=== PATIENT | male | born 1980 | race Caucasian/White ===

== ENCOUNTER 2016-10-06 09:24 | Emergency (ER) | payer SELFPAY ==
[2016-10-06 09:45] VITALS: TEMP 97.7
--- NOTE | 2016-10-06 10:20 | EDPHY ---
H & P Stated Complaint: 2 weeks of groin rash, thought it was herpies HPI/ROS: CHIEF COMPLAINT: Groin rash, penis pain, testicular pain HISTORY OF PRESENT ILLNESS: Patient complains of 2 week history of rash to the left groin and now several days of pain and swelling to the penis and testicles. Gradual onset. Constant duration. The rash at 1st he thought was herpetic, but then decided that it was actually candidal. He is convinced that this is a candidal infection of the groin that has spread to the penis. The penis he says is "the size of a grapefruit and really painful." No difficulty urinating. No fever or chills. No sexual activity during the course of this. No abdominal pain. No constipation diarrhea. Has a prior diagnosis of HSV. He does not take any proper prescriptions, he prefers to manage his symptoms with naturopathic medicine. No other associated complaints or modifying factors. REVIEW OF SYSTEMS: Ten systems reviewed and are negative unless otherwise noted in the HPI PAST MEDICAL HISTORY: HSV, chronic pain SOCIAL HISTORY: Works for [employer] FAMILY HISTORY: Noncontributory EXAMINATION General Appearance: Alert, no distress Head: normocephalic, atraumatic Eyes: Pupils equal and round, no conjunctival pallor or injection ENT, Mouth: Mucous membranes moist Neck: Normal inspection, supple, non-tender Respiratory: Lungs are clear to auscultation. No wheezing, rhonchi or crackles Cardiovascular: Regular rate and rhythm. No murmur Gastrointestinal: Abdomen is soft and nontender. No CVA tenderness. No hernia. No distention or rigidity. Nonacute abdomen. : Circumcised penis with significant swelling of the glans and the shaft of the penis. There is a candidal rash present. No hernia on testicular examination. Testicles are tender to the touch but nonedematous. Skin: Warm and dry, candidal rash consistent with tinea cruris Extremities: Nontender, no pedal edema Psychiatric: Mood and affect normal DIFFERENTIAL DIAGNOSES: Including but not limited to tinea cruris, balanitis, torsion, epididymitis, STI , HSV MDM: 10:20 a.m. Candidal rash to the groin as well as the penis and scrotum along with balanitis. He does have testicular pain, thus I have ordered an ultrasound of the scrotum and testicles. I do not appreciate torsion and I suspect this is more related to the Lali. Will start with treatment here of topical antifungal. He has declined oral antifungals as he feels that he cannot tolerate them due to previous incidence of taking them. Patient felt that this was a herpetic rash. The appearance is more consistent with Lali than HSV. 11:47 a.m. Case discussed with radiologist Dr. Shah. Ultrasound of the testicles reveals only cutaneous changes. No epididymitis. No torsion. No varicocele or hematocele. This fits clinically with this picture of balanitis and tinea cruris. Continue treatment with terbinafine. Recommend follow up with urologist for definitive care. Return here for any worsening pain, difficulty urinating, gross hematuria. He is comfortable with this plan and discharged home stable condition. SUPERVISION: This patient was independently evaluated without direct examination by the attending physician. Case was discussed with attending physician. Source: Patient Exam Limitations: No limitations - Personal History Current Tetanus/Diphtheria Vaccine: Yes Current Tetanus Diphtheria and Acellular Pertussis (TDAP): Yes - Medical/Surgical History Hx Asthma: No Hx Chronic Respiratory Disease: No Hx Diabetes: No Hx Cardiac Disease: No Hx Renal Disease: No Hx Cirrhosis: No Hx Alcoholism: No Hx HIV/AIDS: No Hx Splenectomy or Spleen Trauma: No Other PMH: BROKE BACK/NECK, toenail infection - Social History Smoking Status: Never smoked Constitutional: Initial Vital Signs Temperature (C) 97.7 F 10/06/16 09:43 Heart Rate 86 10/06/16 09:43 Respiratory Rate 16 10/06/16 09:43 Blood Pressure 119/73 10/06/16 09:43 O2 Sat (%) 98 10/06/16 09:43 O2 Delivery Mode Room Air Allergies/Adverse Reactions: gluten Allergy (Verified 12/29/15 03:27) Milk Containing Products [dairy] Allergy (Verified 12/29/15 03:27) Home Medications: Medication Instructions Recorded Terbinafine [Lamisil At] 12 gm TP BID #1 tube 10/06/16 oxyCODONE HCL/ACETAMINOPHEN 1 each PO Q4-6PRN PRN #14 tablet 10/06/16 [Percocet 5-325 mg Tablet] Medical Decision Making - Diagnostics Imaging Results: Imaging Impressions Testicular Ultrasound 10/06/16 10:18 Impression: Scrotal soft tissue swelling, otherwise, negative testicular ultrasound. Results called and discussed with Piter Valentin PAC on 10/06/2016 at 11:51: - Data Points Laboratory Results: 10/06/16 10/06/16 10:05 10:05 Urine Color PALE YELLOW Urine Appearance CLEAR Urine pH 7.0 (5.0-7.5) Ur Specific [place] 1.005 (1.002-1.030) Urine Protein NEGATIVE (NEGATIVE) Urine Ketones NEGATIVE (NEGATIVE) Urine Blood NEGATIVE (NEGATIVE) Urine Nitrate NEGATIVE (NEGATIVE) Urine Bilirubin NEGATIVE (NEGATIVE) Urine Urobilinogen NEGATIVE EU EU (0.2-1.0) Ur Leukocyte Esterase NEGATIVE (NEGATIVE) Urine RBC 25-50 /hpf H /hpf (0-3) Urine WBC 1-3 /hpf /hpf (0-3) Ur Epithelial Cells NONE SEEN /lpf /lpf (NONE-1+) Urine Glucose NEGATIVE (NEGATIVE) C.trachomatis RNA (TMA) Pending N.gonorrhoeae RNA (TMA) Pending Medications Given: Discontinued Medications Oxycodone HCl (Oxycodone Ir) 10 mg PO EDNOW ONE Stop: 10/06/16 10:56 Last Admin: 10/06/16 11:00 Dose: 10 mg Oxycodone/Acetaminophen (Percocet 5/325) 1 tab PO EDNOW ONE Stop: 10/06/16 10:49 Last Admin: 10/06/16 10:55 Dose: Not Given Departure - Departure Disposition: Home, Routine, Self-Care Clinical Impression: Balanitis, Tinea cruris Condition: Good Instructions: Tinea Corporis (ED), Jock Itch (ED), Balanitis (ED) Additional Instructions: Medications as discussed. Contact Urology today for follow-up as soon as possible. Return here for worsening symptoms or increasing swelling Referrals: NONE *PRIMARY CARE P,. [Primary Care Provider] - As per Instructions Aleks Mckinnon MD [Medical Doctor] - As per Instructions Prescriptions: oxyCODONE HCL/ACETAMINOPHEN [Percocet 5-325 mg Tablet] 1 each PO Q4-6PRN PRN # 14 tablet PRN Reason: Pain, Breakthrough Terbinafine [Lamisil At] 12 gm TP BID #1 tube
[2016-10-06 10:29] LABS: COLOR PALE YELLOW; LEUKOCYTE ESTERASE,URINE NEGATIVE (NEGATIVE); NITRITE,URINE NEGATIVE (NEGATIVE)
[2016-10-06] MEDS ORDERED: TERBINAFINE 30 GM CRTUBE TP SCH (10:30)
[2016-10-06 10:35] LABS: RBC,URINE 25-50 /hpf (0-3)
[2016-10-06] MEDS ORDERED: OXYCODONE/APAP 5/325 TAB PO ONE (10:48)
[2016-10-06] MEDS ORDERED: oxyCODONE IR 5 MG TAB PO ONE (10:55)
[2016-10-06 12:35] VITALS: BP 114/69; PULSE 68; RESP 18; O2SAT 95
[2016-10-07 12:40] LABS: CHLAMYDIA AMPLIFICATION GENPRB NEGATIVE (NEGATIVE)
== END 2016-10-06 12:35 | disposition home or self-care (01) ==
DX: N48.1 Balanitis (principal); B35.6 Tinea cruris

== ENCOUNTER 2016-10-07 12:11 | Emergency (ER) | payer SELFPAY ==
--- NOTE | 2016-10-07 13:00 | EDPHY ---
H & P Stated Complaint: groin pain penis pain Time Seen by Provider: 10/07/16 13:10 HPI/ROS: CHIEF COMPLAINT: Testicular pain, swelling, rash HISTORY OF PRESENT ILLNESS: This patient is a 35-year-old male who presents to the Emergency Department complaining of worsening testicular and scrotum swelling and candidal rash beginning 1.5 weeks ago and worsening over time. He was seen in this facility yesterday for the same complaint and discharged home with Terbinafine to topically treat tinea cruris and balanitis. He had a normal testicular ultrasound at that time apart from cutaneous swelling. He returns today because his pain has been unmanageable even with use of Percocet. He describes a stabbing and burning pain throughout his inguinal region, associated with nausea but no vomiting. He denies fever or chills or dysuria. Medical history includes eczema and history of recurrent fungal infections over the course of his life. He has a remote history of herpes. REVIEW OF SYSTEMS: A ten point review of systems was performed and is negative with the exception of the items mentioned in the HPI. Source: Patient - Personal History Current Tetanus/Diphtheria Vaccine: Unsure Current Tetanus Diphtheria and Acellular Pertussis (TDAP): Unsure - Medical/Surgical History PMH: Prior medical records reviewed by myself, including visit yesterday for same complaint. 1. Modesta (self-diagnosed) 2. Eczema 3. Vertebral fractures, unspecified Hx Asthma: No Hx Chronic Respiratory Disease: No Hx Diabetes: No Hx Cardiac Disease: No Hx Renal Disease: No Hx Cirrhosis: No Hx Alcoholism: No Hx HIV/AIDS: No Hx Splenectomy or Spleen Trauma: No Other PMH: BROKE BACK/NECK, toenail infection - Social History Smoking Status: Never smoked Additional Social History: Non-smoker. He is not . He works for [employer]. - Physical Exam Exam: General Appearance: Alert. Vital signs reviewed. Eyes: Pupils equal and round, no conjunctival injection, no discharge. Anicteric. ENT, Mouth: Mucous membranes are moist, no oropharyngeal erythema or edema. Neck: No lymphadenopathy, supple. Respiratory: Lungs are clear to auscultation; no wheezes, rales, or rhonchi. Cardiovascular: Regular rate and rhythm; no murmur, rub, or gallop. Gastrointestinal: Abdomen is soft and nontender, no masses or organomegaly, bowel sounds normal. Genitalia: Circumcised male. Erythematous papular rash bilaterally to inguinal area extending to both thighs, erythematous and edematous scrotum and testicles. Skin: Warm and dry, no rashes on exposed skin, normal color. Back: Nontender to palpation over the thoracolumbar spine. No CVAT. Extremities: No lower extremity edema, no calf tenderness or swelling. Neurological: Alert and oriented. Moving all four extremities easily and equally. Psychiatric: Normal affect. Constitutional: Initial Vital Signs Temperature (C) 36.5 C 10/07/16 12:17 Heart Rate 64 10/07/16 12:17 Respiratory Rate 16 10/07/16 12:17 Blood Pressure 113/66 10/07/16 12:17 O2 Sat (%) 94 10/07/16 12:17 O2 Delivery Mode Room Air Allergies/Adverse Reactions: gluten Allergy (Verified 10/08/16 16:26) Milk Containing Products [dairy] Allergy (Verified 10/08/16 16:26) Home Medications: Medication Instructions Recorded Herbals/Supplements -Info Only 1 ea PO DAILY 10/08/16 Acetaminophen [Tylenol 325mg (*)] 650 mg PO Q4HRS PRN #0 tab 10/10/16 Ibuprofen [Motrin (*)] 400 mg PO Q6HRS PRN #0 tab 10/10/16 Polyethylene Glycol 3350 [Miralax 17 gm PO DAILY PRN #0 pkt 10/10/16 17 gm (*)] diphenhydrAMINE [Benadryl 25 MG 25 - 50 mg PO Q6HRS PRN #0 cap 10/10/16 (*)] oxyCODONE IR [Oxycodone Ir (*)] 5 mg PO Q4H PRN #12 tab 10/10/16 predniSONE 40 mg PO DAILY #20 tablet 10/10/16 Medical Decision Making - Diagnostics Imaging: Discussed imaging studies w/ scallop shucker Radiologist ED Course/Re-evaluation: 35-year-old male with history of genital HSV and self-diagnosis of modesta presents today with complaints of pruritic rash, edema, and erythema to his groin, scrotum, and testicles. He has no known immunocompromising condition. He is non-diabetic. He was evaluated yesterday and treated with topical Terbinafine and given Percocet for pain. He presents today as the rash has spread to include his upper thighs and the pain has been unmanageable. He is afebrile at time of presentation and denies subjective fever. On exam, he has significant edema to his scrotum and both testicles and a papular rash to his groin. Piter Valentin, the PA who evaluated the patient yesterday, evaluated the patient at my request and reports significant increase to the area of the rash as well as the swelling and erythema to the patient's genitalia. Plan for consultation with urology to determine next steps. 1330: Consultation with Dr. Hurtado, urology, who recommends labs and CT imaging for further evaluation. I discussed plan for labs and CT of the abdomen and pelvis with the patient. He is agreeable to this. IV established. 1L IV NS, 4mg IV Zofran, and 1mg IV Dilaudid administered for pain. 1420: On reevaluation, the patient is feeling better after receiving pain medication. He is on his way CT scan. CBC and chemistries obtained and are largely within normal limits. WBC is normal at 6.03. There is nothing to suggest altered renal function. 1526: CT of the abdomen and pelvis results discussed with Dr. Ayala, radiologist. There is nothing to suggest necrotizing fasciitis. There is diffuse scrotal and testicular edema. Pelvic lymphadenopathy is noted, likely reactive. 1540: Consultation with Dr. Hurtado, urology, who recommends treating the patient' s rash with Medrol Dosepak and dermatology follow-up. I discussed this with the patient. He refuses prednisone; he tells me that his kidneys and liver "shut down" when he took prednisone previously. I continue to believe that this would be the best course for treatment of his inflammation; however, he declines. He will continue to take oxycodone as needed for pain. He understands customary return precautions and will be discharged home in good condition. Although he appears uncomfortable, I do not think that he is septic or in need of hospitalization. I do not think that this is a cellulitis. Differential Diagnosis: Differential diagnosis includes but is not limited to cellulitis, necrotizing fasciitis, Modesta, eczema, other dermatologic condition. - Data Points Laboratory Results: Laboratory Results 10/07/16 13:45 10/07/16 13:45 Medications Given: Discontinued Medications Hydromorphone HCl (Dilaudid) 0.5 mg IVP EDNOW ONE Stop: 10/07/16 13:47 Last Admin: 10/07/16 14:00 Dose: 0.5 mg Hydromorphone HCl (Dilaudid) 0.5 mg IVP EDNOW ONE Stop: 10/07/16 14:38 Last Admin: 10/07/16 14:40 Dose: 0.5 mg Hydromorphone HCl (Dilaudid) 1 mg IVP EDNOW ONE Stop: 10/07/16 15:55 Last Admin: 10/07/16 16:00 Dose: 1 mg Ondansetron HCl (Zofran) 4 mg IVP EDNOW ONE Stop: 10/07/16 13:47 Last Admin: 10/07/16 14:00 Dose: 4 mg Departure - Departure Disposition: Home, Routine, Self-Care Clinical Impression: Balanitis, Scrotal edema Condition: Good Instructions: Narcotic Pain Management (ED), Balanitis (ED) Additional Instructions: 1. Stop using any cream to treat your rash. It's possible that the creams you have been using are worsening the inflammation as opposed to improving them. 2. We have given you a prescription for methylprednisolone to treat your rash, inflammation, and swelling. It is your choice if you do not wish to proceed with this treatment, but I recommend it as it will help with your inflammation. 3. You can continue to use oxycodone as prescribed for severe pain. 4. Call to schedule a follow-up appointment with a talent program manager for further evaluation. We do not have any on-call providers, so you will need to find a provider online. 5. Return to the Emergency Department if you experience increased swelling or pain, if your rash spreads to other parts of your body, if you have difficulty urinating, high fever, or for other serious concerns. Referrals: Jerzy Hurtado MD [Medical Doctor] - As per Instructions Report Scribed for: Kelly Rivera Report Scribed by: Maribel Dahl Date of Report: 10/07/16 Time of Report: 13:02 Physician Review and Approval Statement: 10/07/16 13:44 Portions of this note were transcribed by the hospitalist medical director. I, Dr. Kelly Rivera, personally performed the history, physical exam, and medical decision- making; and confirmed the accuracy of the information in the transcribed note.
[2016-10-07] MEDS ORDERED: HYDROmorphONE/DILAUDID 1 MG/ML SYR IVP ONE ×3 (13:46→15:54)
[2016-10-07] MEDS ORDERED: ONDANSETRON 4 MG/2 ML VIAL IVP ONE (13:46)
[2016-10-07 14:10] LABS: % IMMATURE GRANULYOCYTES 0.2 % (0.0-1.1); ABSOLUTE IMMATURE GRANULOCYTES 0.01 10^3/uL (0.00-0.10); ADD DIFF? NO; ADD MORPH? NO; ADD SCAN? NO; ATYPICAL LYMPHOCYTE FLAG 30 (0-99); FRAGMENT RBC FLAG 0 (0-99); HEMATOCRIT 42.1 % (40.0-51.0); HEMOGLOBIN 14.7 g/dL (13.7-17.5); LEFT SHIFT FLG 0 (0-99); LIPEMIA HEMOLYSIS FLAG 90 (0-99); MEAN CELL HEMOGLOBIN 34.3 pg (27.9-34.1); MEAN CELL HEMOGLOBIN CONCENTR. 34.9 g/dL (32.4-36.7); MEAN CELL VOLUME 98.1 fL (81.5-99.8); MEAN PLATELET VOLUME 9.5 fL (8.7-11.7); PLATELET CLUMPS FLAG 0 (0-99); PLATELET COUNT 187 10^3/uL (150-400); RED BLOOD CELL COUNT 4.29 10^6/uL (4.40-6.38); RED CELL DISTRIBUTION WIDTH 12.8 % (11.5-15.2)
[2016-10-07 14:13] LABS: ANION GAP 10 mEq/L (8-16); CALCIUM 9.8 mg/dL (8.5-10.4); CARBON DIOXIDE 25 mEq/l (22-31); CHLORIDE 98 mEq/L (97-110); CREATININE 1.1 mg/dL (0.7-1.3); GLOMERULAR FILTRATION RATE > 60; GLUCOSE 76 mg/dL (70-100); POTASSIUM 4.6 mEq/L (3.5-5.2); SODIUM 133 mEq/L (134-144)
[2016-10-07] MEDS ORDERED: IOPAMIDOL (ISOVUE-300) 100 ML BTL ONE (14:18)
[2016-10-07 15:03] VITALS: TEMP 98.8
[2016-10-07 16:26] VITALS: BP 112/64; PULSE 55; RESP 14; O2SAT 100
== END 2016-10-07 16:00 | disposition home or self-care (01) ==
DX: N50.89 Other specified disorders of the male genital organs (principal); N48.1 Balanitis
CPT/HCPCS: 96374; J1170; J2405; Q9967

== ENCOUNTER 2016-10-08 16:15 | Inpatient (IN) | payer SELFPAY ==
--- NOTE | 2016-10-08 17:00 | EDPHY ---
H & P Stated Complaint: continued prob with testicular rash/swelling (won't take his rx prednisone) Time Seen by Provider: 10/08/16 17:00 - Personal History Current Tetanus/Diphtheria Vaccine: Yes - Medical/Surgical History Hx Asthma: No Hx Chronic Respiratory Disease: No Hx Diabetes: No Hx Cardiac Disease: No Hx Renal Disease: No Hx Cirrhosis: No Hx Alcoholism: No Hx HIV/AIDS: No Hx Splenectomy or Spleen Trauma: No Other PMH: BROKE BACK/NECK, toenail infection - Social History Smoking Status: Never smoked Constitutional: Initial Vital Signs Temperature (C) 36.8 C 10/08/16 16:27 Heart Rate 60 10/08/16 16:27 Respiratory Rate 16 10/08/16 16:27 Blood Pressure 121/75 H 10/08/16 16:27 O2 Sat (%) 97 10/08/16 16:27 O2 Delivery Mode Room Air Allergies/Adverse Reactions: gluten Allergy (Verified 10/08/16 16:26) Milk Containing Products [dairy] Allergy (Verified 10/08/16 16:26) Home Medications: Medication Instructions Recorded Herbals/Supplements -Info Only 1 ea PO DAILY 10/08/16 Medical Decision Making ED Course/Re-evaluation: CHIEF COMPLAINT: Worsening rash and edema to genitals HISTORY OF PRESENT ILLNESS: The patient is a 35 y/o male returning for the 3rd time in 3 days for worsening rash, edema, and pain to his penis, testicles, abdomen and now spreading to his arms. He states he has a remote history of a significant skin infection or eczema on his extremities that was treated with "experimental fungal cream" and steroids. He has since had self-diagnosed recurrent modesta infections that he self-treats. About 2 weeks ago he noticed suprapubic pain and redness. This has since spread to his scrotum, penis, and abdomen with associated edema and in the last 5 hours symptoms began spreading to his extremities and back. He says, "my testicles are the source of the most immense pain ever." He has been able to urinate, but says it is associated with flank pain. He also developed weeping around his genitals today. He thinks his symptoms are due to a parasite or some type of modesta infection. He had an abdomen and pelvis CT here yesterday that showed constipation and soft tissue swelling of his genitals. He was offered steroids during previous visits here, which he declined stating it would "shut down" his liver. He denies any obvious precipitating factors or new exposures. No fever, vomiting, diarrhea. REVIEW OF SYSTEMS: A 10 point review of systems was performed and is negative with the exception of the elements mentioned in the history of present illness. PHYSICAL EXAM: HR, BP, O2 Sat, RR. Temp noted General Appearance: Alert, well hydrated, appropriate, and non-toxic appearing. Head: Atraumatic without scalp tenderness or obvious injury Eyes: Pupils equal, round, reactive to light and accommodation, EOMI, no trauma , no injection. Ears: Clear bilaterally, no perforation, normal landmarks Nose: Atraumatic, no rhinorrhea, clear. Throat: There is no erythema or exudates, no lesions, normal tonsils, mucus membranes moist. Neck: Supple, nontender, no lymphadenopathy. Respiratory: No retractions, no distress, no wheezes, and no accessory muscle use. Lungs are clear to auscultation bilaterally. Cardiovascular: Regular rate and rhythm, no murmurs, rubs, or gallops. Good capillary refill all extremities. Gastrointestinal: Abdomen is soft, nontender, non-distended, no masses, no rebound, no guarding, no peritoneal signs. Musculoskeletal: Normal active ROM of all extremities, atraumatic. Neurological: Alert, appropriate, and interactive. Nonfocal neuro exam. Skin: Diffuse erythematous, tender, and papular rash on genitals, abdomen, extremities, and back; erythema, warmth, edema, and weeping to scrotum and penis. Past medical history: self-diagnosed Modesta, HSV, eczema, vertebral fractures Past surgical history: Denies Family history: noncontributory Social history: Nonsmoker Reviewed prior medical records including ED visit yesterday for the same complaint. DIFFERENTIAL DIAGNOSIS: The differential diagnosis for the patient's rash included but was not limited to contact dermatitis, systemic allergic reaction, infectious process, viral syndrome. MEDICAL DECISION MAKING: This is a 35 y/o male who presents with significant erythema, edema, and tenderness to his genitals that has been worsening over the last few days. The rash has now spread to his abdomen, extremities, and back. He is quite uncomfortable. He continues to decline steroid treatment here until he can speak with ID. He has normal vitals without signs of infectious symptoms. I've recommended admission as this is his 3rd visit in the last 3 days and symptoms are spreading, which he agrees to. No evidence of necrosis or Jessie's gangrene. ID paged. [phone]: Consulted with CURTIS Pagan. At this time she does not recommend empiric antibiotic treatment. Spoke with hospitalist service. Dr. Chatman accepts admission. - Data Points Medications Given: Discontinued Medications Hydromorphone HCl (Dilaudid) 1 mg IVP EDNOW ONE Stop: 10/08/16 17:36 Last Admin: 10/08/16 18:06 Dose: 1 mg Hydromorphone HCl (Dilaudid) 1 mg IVP EDNOW ONE Stop: 10/08/16 18:35 Last Admin: 10/08/16 18:34 Dose: 1 mg Sodium Chloride (Ns) 1,000 mls @ 0 mls/hr IV ONCE ONE; Wide Open PRN Reason: Protocol Stop: 10/08/16 17:36 Last Admin: 10/08/16 18:06 Dose: 1,000 mls Ketorolac Tromethamine (Toradol) 30 mg IVP EDNOW ONE Stop: 10/08/16 17:36 Last Admin: 10/08/16 18:06 Dose: 30 mg Departure - Departure Disposition: [facility] Clinical Impression: Diffuse papular rash, Genital edema, male, Erythema of external genitalia Condition: Fair Report Scribed for: Anthony Javier Report Scribed by: Catie Patricia Date of Report: 10/08/16 Time of Report: 17:45
[2016-10-08] MEDS ORDERED: HYDROmorphONE/DILAUDID 1 MG/ML SYR IVP ONE ×2 (17:35→19:11)
[2016-10-08] MEDS ORDERED: KETOROLAC 30 MG/1 ML SDV IVP ONE (17:35)
[2016-10-08] MEDS ORDERED: NS 1,000 ML IV ONE (17:35)
[2016-10-08 18:00] LABS: % IMMATURE GRANULYOCYTES 0.1 % (0.0-1.1); ABSOLUTE IMMATURE GRANULOCYTES 0.01 10^3/uL (0.00-0.10); ADD DIFF? NO; ADD MORPH? NO; ADD SCAN? NO; ATYPICAL LYMPHOCYTE FLAG 20 (0-99); FRAGMENT RBC FLAG 20 (0-99); HEMATOCRIT 46.3 % (40.0-51.0); LEFT SHIFT FLG 20 (0-99); LIPEMIA HEMOLYSIS FLAG 90 (0-99); MEAN CELL HEMOGLOBIN 33.7 pg (27.9-34.1); MEAN CELL HEMOGLOBIN CONCENTR. 34.6 g/dL (32.4-36.7); MEAN CELL VOLUME 97.5 fL (81.5-99.8); MEAN PLATELET VOLUME 9.7 fL (8.7-11.7); PLATELET CLUMPS FLAG 0 (0-99); PLATELET COUNT 207 10^3/uL (150-400); RED BLOOD CELL COUNT 4.75 10^6/uL (4.40-6.38); RED CELL DISTRIBUTION WIDTH 12.3 % (11.5-15.2)
[2016-10-08 18:29] LABS: ALANINE AMINOTRANSFERASE 37 IU/L (21-72); ALBUMIN 4.6 g/dL (3.5-5.0); ALKALINE PHOSPHATASE 118 IU/L (38-126); ANION GAP 13 mEq/L (8-16); ASPARTATE AMINOTRANSFERASE 25 IU/L (17-59); BILIRUBIN,TOTAL 0.8 mg/dL (0.1-1.4); BILIRUBIN-CONJUGATED 0.4 mg/dL (0.0-0.5); BILIRUBIN-UNCONJUGATED 0.4 mg/dL (0.0-1.1); C-REACTIVE PROTEIN 31.6 mg/L (<10.0); CALCIUM 9.7 mg/dL (8.5-10.4); CARBON DIOXIDE 24 mEq/l (22-31); CHLORIDE 95 mEq/L (97-110); CREATININE 0.9 mg/dL (0.7-1.3); GLOMERULAR FILTRATION RATE > 60; GLUCOSE 65 mg/dL (70-100); POTASSIUM 4.2 mEq/L (3.5-5.2); SODIUM 132 mEq/L (134-144); TOTAL PROTEIN 7.3 g/dL (6.3-8.2)
[2016-10-08] MEDS ORDERED: HYDROmorphONE/DILAUDID 1 MG/ML SYR ONE (18:29)
[2016-10-08 18:34] LABS: COLOR COLORLESS; LEUKOCYTE ESTERASE,URINE NEGATIVE (NEGATIVE); NITRITE,URINE NEGATIVE (NEGATIVE)
[2016-10-08] MEDS ORDERED: HYDROmorphONE/DILAUDID 2 MG/ML INJ IVP ONE (18:34)
[2016-10-08 18:42] LABS: BACTERIA TRACE /hpf (NONE SEEN)
[2016-10-08 18:52] LABS: SEDIMENTATION RATE 4 MM/HR (0-15)
[2016-10-08 18:59] LABS: PROCALCITONIN 0.18 ng/mL (0.02-0.10)
[2016-10-08] MEDS ORDERED: ONDANSETRON DISINTEGRATING 4 MG TAB PO PRN (19:01)
[2016-10-08] MEDS ORDERED: LORazepam 2 MG/ML INJ IVP PRN (19:01)
[2016-10-08] MEDS ORDERED: ACETAMINOPHEN 325 MG TAB PO PRN (19:01)
[2016-10-08] MEDS ORDERED: ONDANSETRON 4 MG/2 ML VIAL IVP PRN (19:01)
[2016-10-08] MEDS ORDERED: LORazepam 0.5 MG TAB PO PRN (19:01)
[2016-10-08] MEDS ORDERED: PROMETHAZINE HCL 25 MG/ML INJ IVP PRN (19:01)
[2016-10-08] MEDS ORDERED: ALBUTEROL 60 PUFFS/8 GM MDI IH PRN (19:01)
[2016-10-08] MEDS ORDERED: methylPREDNISolone SOD SUCC 125 MG/2 ML VIAL IVP ONE (19:05)
[2016-10-08] MEDS ORDERED: BISACODYL 10 MG SUPP PR PRN (19:11)
[2016-10-08] MEDS ORDERED: HYDROmorphONE/DILAUDID 6 MG/30 ML PCA IV PRN (19:11)
[2016-10-08] MEDS ORDERED: NALOXONE HCL 0.4 MG/ML INJ IVP PRN (19:11)
[2016-10-08] MEDS ORDERED: POLYETHYLENE GLYCOL 3350 17 GM PKT PO PRN (19:11)
[2016-10-08] MEDS ORDERED: MAGNESIUM HYDROXIDE 30 ML UDCUP PO PRN (19:11)
[2016-10-08] MEDS ORDERED: LACTULOSE 20 GM/30 ML UDCUP PO PRN (19:11)
[2016-10-08] MEDS ORDERED: oxyCODONE IR 5 MG TAB PO PRN (19:11)
[2016-10-08] MEDS ORDERED: diphenhydrAMINE 25 MG CAP PO PRN (19:11)
--- NOTE | 2016-10-08 19:36 | PDGENHP ---
History and Physical - Chief Complaint penis/scrotum swelling and pain - History of Present Illness 35 yo M with PMH that includes possible eczema and genital HSV presenting with nearly 2 weeks of penile and scrotal redness, swelling and pain. He notes that it began with what he thought was going to be a herpes outbreak with some tingling and burning pain. He put topical lysine on the lesion, as that is what he has used in the past for these types of outbreaks. This progressed to what he believed was jock itch, with pruritis and what he described as white, flaking skin. He started putting gold harper on his scrotum at that point. Shortly after this he started to notice his penis swelling. He states it tripled in size and began to bend and get wrinkles in it. He also noticed painful swelling of the lymph nodes of his groin. He has been seen in the ER now three times for this issue, and he reports that each time the swelling and pain got worse. He has had abd/pelvis ct as well as testicular US which have been negative. He has some rash on his arms and back that he feels is related to what is happening in his genitals. He has a somewhat strange history with eczema, and describes other issues that he has had with his health that he believes are all related to his body attempting to process "toxins" and which lead him to have GI issues, including constipation and n/v and at times vomiting "cylinders" of yellow tissue ( a sample of which he brought to the hospital). He notes that these GI issues often proceed his skin issues and that all in all he believes it is his body detoxing. He also believes he has parasite infection and "candidal" infection of his toenails that is affecting his whole body. He reports seeing black specks and "white eggs" in his stool as well as evidence of "modesta" in his stool. 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 He has not had sexual intercourse in over 3 years, has not traveled out of the [place] except to [place] on a cruise 12 years ago, states he has not used any new products on his skin and has not had any new exposures that he is aware of. History Information - Allergies/Home Medication List Allergies/Adverse Reactions: gluten Allergy (Verified 10/08/16 16:26) Milk Containing Products [dairy] Allergy (Verified 10/08/16 16:26) Home Medications: Herbals/Supplements -Info Only 1 ea PO DAILY 10/08/16 [Last Taken Unknown] I have personally reviewed and updated: family history, medical history, social history, surgical history - Past Medical History Additional medical history: eczema. genital hsv. 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 "adrenal fatigue". anxiety - Surgical History Reports: no pertinent surgical hx - Family History Positive for: non-pertinent - Social History Smoking Status: Never smoked Alcohol Use: Occasionally Drug Use: Marijuana Review of Systems ROS: 10pt was reviewed & negative except for what was stated in HPI & below Physical Exam Temp Pulse Resp BP Pulse Ox 36.8 C 60 16 121/75 H 97 10/08/16 16:27 10/08/16 16:27 10/08/16 16:27 10/08/16 16:27 10/08/16 16:27 Constitutional: appears nourished, uncomfortable Eyes: PERRL, anicteric sclera Ears, Nose, Mouth, Throat: moist mucous membranes, hearing normal Cardiovascular: regular rate and rhythym, no murmur, rub, or gallop, No edema Respiratory: no respiratory distress, no rales or rhonchi, clear to auscultation Gastrointestinal: normoactive bowel sounds, soft, non-tender abdomen Genitourinary: other (weeping edema of scortum/penis with dark red erythema, no focal lesions, very ttp, no penile discharge) Skin: warm, normal color Musculoskeletal: full muscle strength, no muscle tenderness Neurologic: AAOx3, CN II-XII Intact Psychiatric: interacting appropriately, not anxious, not encephalopathic Lab Data & Imaging Review 10/08/16 17:48 10/08/16 17:48 WBC 7.02 10^3/uL (3.80-9.50) 10/08/16 17:48 RBC 4.75 10^6/uL (4.40-6.38) 10/08/16 17:48 Hgb 16.0 g/dL (13.7-17.5) 10/08/16 17:48 Hct 46.3 % (40.0-51.0) 10/08/16 17:48 MCV 97.5 fL (81.5-99.8) 10/08/16 17:48 MCH 33.7 pg (27.9-34.1) 10/08/16 17:48 MCHC 34.6 g/dL (32.4-36.7) 10/08/16 17:48 RDW 12.3 % (11.5-15.2) 10/08/16 17:48 Plt Count 207 10^3/uL (150-400) 10/08/16 17:48 MPV 9.7 fL (8.7-11.7) 10/08/16 17:48 Neut % (Auto) 73.7 % (39.3-74.2) 10/08/16 17:48 Lymph % (Auto) 15.5 % (15.0-45.0) 10/08/16 17:48 Jasper % (Auto) 6.6 % (4.5-13.0) 10/08/16 17:48 Eos % (Auto) 3.7 % (0.6-7.6) 10/08/16 17:48 Baso % (Auto) 0.4 % (0.3-1.7) 10/08/16 17:48 Nucleat RBC Rel Count 0.0 % (0.0-0.2) 10/08/16 17:48 Absolute Neuts (auto) 5.17 10^3/uL (1.70-6.50) 10/08/16 17:48 Absolute Lymphs (auto) 1.09 10^3/uL (1.00-3.00) 10/08/16 17:48 Absolute Monos (auto) 0.46 10^3/uL (0.30-0.80) 10/08/16 17:48 Absolute Eos (auto) 0.26 10^3/uL (0.03-0.40) 10/08/16 17:48 Absolute Basos (auto) 0.03 10^3/uL (0.02-0.10) 10/08/16 17:48 Absolute Nucleated RBC 0.00 10^3/uL (0-0.01) 10/08/16 17:48 Immature Gran % 0.1 % (0.0-1.1) 10/08/16 17:48 Immature Gran # 0.01 10^3/uL (0.00-0.10) 10/08/16 17:48 ESR 4 MM/HR (0-15) 10/08/16 17:48 VBG Lactic Acid 1.1 mmol/L (0.7-2.1) 10/08/16 17:48 Sodium 132 mEq/L (134-144) L 10/08/16 17:48 Potassium 4.2 mEq/L (3.5-5.2) 10/08/16 17:48 Chloride 95 mEq/L (97-110) L 10/08/16 17:48 Carbon Dioxide 24 mEq/l (22-31) 10/08/16 17:48 Anion Gap 13 mEq/L (8-16) 10/08/16 17:48 BUN 18 mg/dL (7-23) 10/08/16 17:48 Creatinine 0.9 mg/dL (0.7-1.3) 10/08/16 17:48 Estimated GFR > 60 10/08/16 17:48 Glucose 65 mg/dL (70-100) L 10/08/16 17:48 Calcium 9.7 mg/dL (8.5-10.4) 10/08/16 17:48 Total Bilirubin 0.8 mg/dL (0.1-1.4) 10/08/16 17:48 Conjugated Bilirubin 0.4 mg/dL (0.0-0.5) 10/08/16 17:48 Unconjugated Bilirubin 0.4 mg/dL (0.0-1.1) 10/08/16 17:48 AST 25 IU/L (17-59) 10/08/16 17:48 ALT 37 IU/L (21-72) 10/08/16 17:48 Alkaline Phosphatase 118 IU/L (38-126) 10/08/16 17:48 C-Reactive Protein 31.6 mg/L (<10.0) H 10/08/16 17:48 Total Protein 7.3 g/dL (6.3-8.2) 10/08/16 17:48 Albumin 4.6 g/dL (3.5-5.0) 10/08/16 17:48 Lipase 43.0 IU/L (23-300) 10/08/16 17:48 Procalcitonin 0.18 ng/mL (0.02-0.10) H 10/08/16 17:48 Urine Color COLORLESS 10/08/16 18:16 Urine Appearance CLEAR 10/08/16 18:16 Urine pH 6.0 (5.0-7.5) 10/08/16 18:16 Ur Specific Vanderbilt 1.003 (1.002-1.030) 10/08/16 18:16 Urine Protein NEGATIVE (NEGATIVE) 10/08/16 18:16 Urine Ketones 1+ (NEGATIVE) H 10/08/16 18:16 Urine Blood NEGATIVE (NEGATIVE) 10/08/16 18:16 Urine Nitrate NEGATIVE (NEGATIVE) 10/08/16 18:16 Urine Bilirubin NEGATIVE (NEGATIVE) 10/08/16 18:16 Urine Urobilinogen NEGATIVE EU (0.2-1.0) 10/08/16 18:16 Ur Leukocyte Esterase NEGATIVE (NEGATIVE) 10/08/16 18:16 Urine RBC 1-3 /hpf (0-3) 10/08/16 18:16 Urine WBC 1-3 /hpf (0-3) 10/08/16 18:16 Ur Epithelial Cells NONE SEEN /lpf (NONE-1+) 10/08/16 18:16 Urine Bacteria TRACE /hpf (NONE SEEN) H 10/08/16 18:16 Urine Glucose NEGATIVE (NEGATIVE) 10/08/16 18:16 Visualized and Interpreted imaging results: Yes Interpretation: abd CT from 10/07--diffuse scrotal edema, pelvic adenopathy Assessment & Plan Assessment: Diffuse papular rash (Acute) Erythema of external genitalia (Acute) Genital edema, male (Acute) 35 yo M with PMH of genital hsv and possible eczema presenting with severe scrotal/penile edema # scrotal/penile edema: profound on exam and without clear etiology noted on imaging or by history, though given report of utilizing various topical creams/ ointments query severe contact dermatitis versus other primary skin condition such as eczema versus localized angioedema versus less likely infection. ID has been consulted and given description so far are recommending steroids rather than abx. Discussed with urology who are recommending elevation and consideration of diuretics given primary issue being edema--they will be available tomorrow if sxs continued but will need to be contacted in am. Given severity of pain will repeat testicular US and start IV steroids. 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 Current rash does not appear c/w eczema however and is fairly localized to his left arm and upper back--? contact dermatitis. No lesions in mouth, some of the area above his scrotum and lower abdomen appear similar to rash on arms. Monitoring for now. # dispo: observation status, will need < 48 hrs for eval/mgmt of above Care plan reviewed with ER doctor and urology, old records reviewed and summarized as above. OP records requested.
[2016-10-08] MEDS: SENNOSIDES/DOCUSATE SODIUM TAB PO SCH (23:36)
[2016-10-09] MEDS: methylPREDNISolone SOD SUCC 125 MG/2 ML VIAL IVP SCH ×3 (00:23→11:58)
[2016-10-09] MEDS: oxyCODONE IR 5 MG TAB PO PRN ×5 (02:05→18:34)
[2016-10-09] MEDS: LORazepam 0.5 MG TAB PO PRN ×4 (02:07→14:37)
--- NOTE | 2016-10-09 08:25 | HOSPPROG ---
Hospitalist Progress Note Assessment/Plan: 35 yo M with PMH of genital hsv and possible eczema presenting with severe scrotal/penile edema. Today is my first encounter with the patient/chart reviewed. *scrotal penile/edema/contact dermatitis started on IV steroids w much improvement *pain taking oxy IR q 4 hours added ibuprofen *Underweight w a BMI of 20 patient on gluten free, no grains, no sugar diet *plan: will re-evaluate later today/ if he can ambulate and has less swelling, will dc him home Subjective: Malcolm said he has significant pain in the scrotal area. Objective: Vital Signs Temp Pulse Resp BP Pulse Ox 36.3 C 69 18 105/58 L 95 10/09/16 07:28 10/09/16 07:28 10/09/16 07:28 10/09/16 07:28 10/09/16 07:28 Microbiology 10/08/16 22:00 Gram Stain - Final Penis - Anaerobic Tube/Swab Laboratory Results 10/08/16 17:48 10/08/16 17:48 10/08/16 10/09/16 10/10/16 05:59 05:59 05:59 Intake Total 1600 Balance 1600 - Physical Exam Constitutional: uncomfortable, other (thin) Eyes: PERRL Ears, Nose, Mouth, Throat: hearing normal Cardiovascular: regular rate and rhythym Respiratory: no respiratory distress Gastrointestinal: normoactive bowel sounds Skin: other (scrotal area, groin and lower abdominal area with warmth, redness, and tenderness) Musculoskeletal: full muscle strength Neurologic: AAOx3 Psychiatric: interacting appropriately ICD10 Worksheet Patient Problems: Problems Problem Status Onset Diffuse papular rash Acute Erythema of external genitalia Acute Genital edema, male Acute
--- NOTE | 2016-10-09 08:39 | WOCRNPDOC ---
[facility] Advanced Assessment Note - Skin Integrity Problem, Advanced Assess Generalized Perineum Rash (flat) Dressing Type: Open to Air Exudate Amount: None Exudate Characteristic(s): None Wound Bed Color: Red Site Odor: None Skin Integrity Problem Comment: Flat, erythmatic rash w/ satellite lesions noted on scrotum, penis, inner thighs, extending to just above pubis, consistent in appearance w/ fungal infection. There is also accompanying swelling and reports of intense, burning pain. Per patient, he has a h/o systemic modesta, which he believes is causing this current rash. He reports treating site w/ a mixture of tea tree oil and coconut oil, which he says gave him some measure of relief. He also reports "allergies" to a variety of topical and oral anti-fungals, including Terbafine. Presently, he is still reporting significant pain, but says the swelling in both his scrotum and penis is receding. Given his reported h/o reactions to topical anti-fungals, this author is reluctant to recommend them at this time. 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 In addition, Interdry sheets are impregnated w/ silver, which imparts anti -fungal tx to surrounding tissues. Will follow-up with patient as needed.
[2016-10-09] MEDS: IBUPROFEN 200 MG TAB PO PRN ×2 (09:44→18:34)
--- NOTE | 2016-10-09 10:31 | GCON ---
[f rep st] CONSULTATION INFECTIOUS DISEASE CONSULTATION REASON FOR CONSULTATION: Rash associated with inguinal scrotum and penis. HISTORY OF PRESENT ILLNESS: A 35-year-old male with past medical history of eczema and genital HSV, whose problems started approximately 2-3 weeks ago when he developed an HSV outbreak, and subsequen tly applied topical lysine therapy. He subsequently felt he developed "jock itch" with itching and white flaking skin, and he applied topical Gold Owens. He subsequently developed a rash, and present ed to the emergency room for further evaluation. In the emergency room, he was prescribed terfenadi ne topically and oxycodone. He returned 2 more times, and overnight was admitted for further evalua tion. At his last visit, it was recommended that he take steroids for possible topical contact derm atitis, and follow up with Urology. The patient continued to have such severe pain he re-presented. He has no fevers, chills, night sweats associated with this eruption. The patient describes that he has multiple intolerances to food, that he has "Lali infection" of his whole body. He states that he can see Lali in his stool. He has significant weight loss due to dietary changes. He de nies minimal risk for STDs. He is heterosexual and last had sex 3 years ago. No recent internation al travel. Overnight the patient was started on IV steroids with significant improvement with some improvement in the rash. As a part of his workup, the patient underwent a CT abdomen that showed diffuse scrotal edema, but i s nonspecific. He had some mild pelvic adenopathy that was felt to be reactive. He also had a test icular ultrasound that just showed normal-size testis bilaterally with some scrotal soft-tissue. PAST MEDICAL HISTORY: Eczema, genital HSV, adrenal fatigue, and anxiety. PAST SURGICAL HISTORY: None. FAMILY HISTORY: Reviewed and noncontributory. SOCIAL HISTORY: No tobacco. Occasional alcohol. Uses marijuana. MEDICATIONS: Herbal supplements, otherwise, none. ALLERGIES: Gluten and milk products. REVIEW OF SYSTEMS: A complete 10-point review of systems was performed and is negative, except as m entioned in HPI. PHYSICAL EXAM: VITAL SIGNS: Blood pressure 105/58, heart rate 69, respiratory rate 18, saturation 95% on room air, temperature 36.3, and he has been afebrile throughout his hospital course. GENERAL : This is a nontoxic-appearing young man lying in bed, in no acute distress. HEENT: Pupils are re active bilaterally. No conjunctival hemorrhages. Oropharynx moist mucous membranes. No oral ulcer ations or exudates. CARDIOVASCULAR: Regular rate and rhythm. No murmurs. CHEST: Clear to auscul tation bilaterally. ABDOMEN: Nontender. : The patient has coalesced maculopapular eruption enc ompassing the entire penis, scrotum, inguinal area, and immediate area at the superior portion of th e thigh with a definitive border with a ishan appearance, but minimal warmth. Significant tendernes s to palpation. No fluctuance. SKIN: The patient had scattered macular papular area in the fine d istribution over his arms and left neck, sparing his distal legs and upper trunk. MUSCULOSKELETAL: No joint swelling. Strength was within normal limits. NEUROLOGICAL: The patient is alert and tiffanie ented x4. He was moving all 4 extremities equally with no focal deficits in cranial nerves noted. PSYCHIATRIC: The patient had somewhat rapid speech, but was interacting appropriately. LABORATORY: Gonorrhea, chlamydia. Urinary screen negative. White count 7, hematocrit 46, platelet s 207, 73% neutrophils, 15% lymphocytes, creatinine 0.9. Urinalysis showed ketones, otherwise, nega tive. IMAGING: As per HPI. ASSESSMENT AND PLAN: A 35-year-old male with a history of eczema with a rash associated in his ingu inal region, scrotum, and penis, consistent with contact dermatitis, likely related to Gold Owens and terfenadine, that is that is improved after steroid therapy overnight. RECOMMENDATIONS: 1. Would continue steroids with a very slow taper over 3-4 weeks. Due to the patient's atopic phen otype, he may get rebound eruption if steroids not tapered slowly. 2. Education was provided to the patient about that treatment of this condition needs to be with [facility] steroids due to severity of the rash. In addition, warned patient that he will likely have s ome skin sloughing related to this condition. 3. Would avoid topical antifungal therapies in the future. 4. Would recommend HIV screening and syphilis screening for completeness sake. Thank you for this consultation. We will call ID for additional questions. /[id number]/MODL
[2016-10-09] MEDS: SENNOSIDES/DOCUSATE SODIUM TAB PO SCH ×2 (11:02→20:34)
[2016-10-09] MEDS ORDERED: HYDROmorphONE/DILAUDID 1 MG/ML SYR IVP ONE (21:00)
[2016-10-10] MEDS: oxyCODONE IR 5 MG TAB PO PRN ×2 (04:40→08:41)
[2016-10-10] MEDS: IBUPROFEN 200 MG TAB PO PRN (04:41)
[2016-10-10] MEDS: SENNOSIDES/DOCUSATE SODIUM TAB PO SCH (08:18)
[2016-10-10 08:47] VITALS: BP 124/97; PULSE 60; RESP 15; TEMP 97.8; O2SAT 96
[2016-10-10] MEDS ORDERED: predniSONE 20 MG TAB PO SCH (09:00)
--- NOTE | 2016-10-10 09:36 | HOSPPROG ---
Hospitalist Progress Note Assessment/Plan: 35 yo M with PMH of genital hsv and possible eczema presenting with severe scrotal/penile edema. *scrotal penile/edema/contact dermatitis started on IV steroids w much improvement will cont a long slow taper of prednisone *pain taking oxy IR q 4 hours added ibuprofen *Underweight w a BMI of 20 patient on gluten free, no grains, no sugar diet *plan: dc home Subjective: Malcolm is feeling much better today/ still have pain around the penis and scrotal area. Objective: Vital Signs Temp Pulse Resp BP Pulse Ox 36.6 C 60 15 124/97 H 96 10/10/16 08:00 10/10/16 08:00 10/10/16 08:00 10/10/16 08:00 10/10/16 08:00 10/09/16 10/10/16 10/11/16 05:59 05:59 05:59 Intake Total 525 Balance 525 - Physical Exam Constitutional: no apparent distress, other (thin) Eyes: PERRL Ears, Nose, Mouth, Throat: hearing normal Respiratory: no respiratory distress Skin: other (scrotal area and testicles w less swelling/ less painful/ still warm) Musculoskeletal: full muscle strength Neurologic: AAOx3 Psychiatric: interacting appropriately ICD10 Worksheet Patient Problems: Problems Problem Status Onset Diffuse papular rash Acute Erythema of external genitalia Acute Genital edema, male Acute
--- NOTE | 2016-10-10 11:19 | GDS ---
[f rep st] DISCHARGE SUMMARY DISCHARGE DIAGNOSES: 1. Severe contact dermatitis with associated scrotal/penile edema. 2. Pain due to this. 3. Underweight with a BMI of 20. CONSULTATIONS: Dr. Ayala Vela with Infectious Disease. HISTORY OF PRESENT ILLNESS: Briefly, the patient is a 35-year-old male with a past medical history of eczema and genital HSV. His problems started approximately 2-3 weeks ago when he developed HSV o utbreak in the scrotal area. He thought he had jock itch and he applied Gold Owens. He subsequently developed a rash. He was seen in the ER and prescribed terfenadine topically and oxycodone. He re turned 2 more times and was admitted for further evaluation. During his stay, he was treated with I V steroids. The swelling has decreased significantly. He will be discharged on a slow taper of pre dnisone to make sure that he does not have a rebound eruption. I have given him 2 physicians to fol low up with. HOSPITAL COURSE: 1. Scrotal penile edema/contact dermatitis. He will be on a slow taper of prednisone. Pain: He i s requesting Oxy IR. He said the pain is out of control. He will get a prescription for 12 of thes e and instructed not to drink or drive. 2. Underweight with a BMI of 20. Recommend that he work on gaining weight. I have given him mike sethi to follow up with. PENDING LABS AND TESTS: Several. CONDITION AT DISCHARGE: Stable. Blood pressure is 124/97, O2 sats on room air are 96%, pulse is 60 , temperature 36.6 Celsius. MEDICATIONS AT DISCHARGE: Please see the EMR. DISCHARGE INSTRUCTIONS: If the redness or swelling becomes worse, or he develops any fever or chill s, return to the ER. Greater than 30 minutes discharging and coordinating his care. /[id number]/MODL
== END 2016-10-10 10:53 | disposition home or self-care (01) | DRG 607 ==
LOC: F3E 19:30 → OBSVTOIN 10-09 14:56
PROVIDERS: ADMIT Internal Medicine; ATTEND Student in an Organized Health Care Education/Training Program
DX: L25.1 Unspecified contact dermatitis due to drugs in contact with skin (principal); N50.89 Other specified disorders of the male genital organs; N48.89 Other specified disorders of penis; T49.1X5A Adverse effect of antipruritics, initial encounter; T45.0X5A Adverse effect of antiallergic and antiemetic drugs, initial encounter
CPT/HCPCS: G0378; J1170; J1885

== ENCOUNTER 2016-12-27 09:56 | Emergency (ER) | payer MEDICAID, OTHER ==
[2016-12-27] MEDS ORDERED: HYDROmorphONE/DILAUDID 1 MG/ML INJ IVP ONE (10:00)
[2016-12-27 10:08] VITALS: RESP 18; TEMP 98.2
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
[2016-12-27 10:23] LABS: ADD DIFF? NO; ADD MORPH? NO; ADD SCAN? NO; ATYPICAL LYMPHOCYTE FLAG 10 (0-99); FRAGMENT RBC FLAG 0 (0-99); HEMATOCRIT 40.6 % (40.0-51.0); HEMOGLOBIN 13.7 g/dL (13.7-17.5); LEFT SHIFT FLG 0 (0-99); LIPEMIA HEMOLYSIS FLAG 80 (0-99); MEAN CELL HEMOGLOBIN 34.3 pg (27.9-34.1); MEAN CELL HEMOGLOBIN CONCENTR. 33.7 g/dL (32.4-36.7); MEAN CELL VOLUME 101.8 fL (81.5-99.8); MEAN PLATELET VOLUME 9.9 fL (8.7-11.7); PLATELET CLUMPS FLAG 0 (0-99); PLATELET COUNT 255 10^3/uL (150-400); RED BLOOD CELL COUNT 3.99 10^6/uL (4.40-6.38); RED CELL DISTRIBUTION WIDTH 12.1 % (11.5-15.2)
[2016-12-27] MEDS ORDERED: NS 1,000 ML IV ONE (10:27)
[2016-12-27 10:38] LABS: INR 1.11 (0.83-1.16); PROTIME(PATIENT) 14.2 SEC (12.0-15.0)
[2016-12-27 10:39] LABS: APTT 21.8 SEC (23.0-38.0)
[2016-12-27 10:51] LABS: ANION GAP 12 mEq/L (8-16); CALCIUM 8.9 mg/dL (8.5-10.4); CARBON DIOXIDE 25 mEq/l (22-31); CHLORIDE 105 mEq/L (97-110); CREATININE 0.9 mg/dL (0.7-1.3); ETHANOL SERUM 156 mg/dL (0-10); GLOMERULAR FILTRATION RATE > 60; GLUCOSE 76 mg/dL (70-100); POTASSIUM 4.3 mEq/L (3.5-5.2); SODIUM 142 mEq/L (134-144)
[2016-12-27] MEDS ORDERED: KETOROLAC 30 MG/1 ML SDV IVP ONE (11:09)
[2016-12-27] MEDS ORDERED: LIDOCAINE 5% 1 EA PATCH TD ONE (11:58)
[2016-12-27 12:40] VITALS: BP 111/71; PULSE 69; O2SAT 93
[2016-12-27] MEDS ORDERED: PATCH REMOVAL 1 EA PATCH TD SCH (21:00)
--- NOTE | 2017-01-04 14:04 | ASDISCHSUM ---
Discharge Information Plan Status: Medically Cleared to Leave: Discharge Date:12/27/2016 12:40 PM CM D/C Disposition: ADT D/C Disposition:Home, Routine, Self-Care Projected Discharge Date:12/27/2016 12:40 PM Transportation at D/C: Discharge Delay Reason: Follow-Up Date:12/27/2016 12:40 PM Discharge Slot: Final Diagnosis: Placement Information Patient Contact Information Contact Name:NATALIE Relationship:Father Address: Work Phone: City: [facility] Phone: [facility]/[employer] Code: Email: Financial Information Financial Class:Commercial Primary Plan Desc:[employer] INSURANCE Primary Plan Number:[id number] Secondary Plan Desc: Secondary Plan Number: Assessment Information Intervention Information
== END 2016-12-27 12:40 | disposition home or self-care (01) ==
DX: S13.9XXA Sprain of joints and ligaments of unspecified parts of neck, initial encounter (principal); S29.9XXA Unspecified injury of thorax, initial encounter; R55 Syncope and collapse; V49.40XA Driver injured in collision with unspecified motor vehicles in traffic accident, initial encounter; Y92.410 Unspecified street and highway as the place of occurrence of the external cause; Y99.8 Other external cause status; Y93.89 Activity, other specified
CPT/HCPCS: 96374; G0480; J1170; J1885; L0172

== ENCOUNTER 2017-01-04 06:45 | Emergency (ER) | payer MEDICAID, OTHER ==
[2017-01-04 06:48] VITALS: RESP 16
--- NOTE | 2017-01-04 06:55 | CPEKG ---
Heart Rate: 76 RR Interval: 789 P-R Interval: 144 QRSD Interval: 118 QT Interval: 420 QTC Interval: 473 P [place]: 61 QRS [place]: 50 T Wave [place]: 20 EKG Severity - ABNORMAL ECG - EKG Impression: SINUS RHYTHM EKG Impression: INCOMPLETE RIGHT BUNDLE BRANCH BLOCK Electronically Signed By: Pancho Foy 05-Jan-2017 21:04:50
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
[2017-01-04] MEDS ORDERED: ASPIRIN 81 MG CHEWABLE TAB PO ONE (07:27)
[2017-01-04 07:32] LABS: % IMMATURE GRANULYOCYTES 0.4 % (0.0-1.1); ABSOLUTE IMMATURE GRANULOCYTES 0.03 10^3/uL (0.00-0.10); ADD DIFF? NO; ADD MORPH? NO; ADD SCAN? NO; ATYPICAL LYMPHOCYTE FLAG 0 (0-99); FRAGMENT RBC FLAG 0 (0-99); HEMOGLOBIN 14.5 g/dL (13.7-17.5); LEFT SHIFT FLG 0 (0-99); LIPEMIA HEMOLYSIS FLAG 90 (0-99); MEAN CELL HEMOGLOBIN 34.4 pg (27.9-34.1); MEAN CELL HEMOGLOBIN CONCENTR. 35.4 g/dL (32.4-36.7); MEAN CELL VOLUME 97.4 fL (81.5-99.8); MEAN PLATELET VOLUME 9.4 fL (8.7-11.7); PLATELET CLUMPS FLAG 0 (0-99); PLATELET COUNT 225 10^3/uL (150-400); RED BLOOD CELL COUNT 4.21 10^6/uL (4.40-6.38); RED CELL DISTRIBUTION WIDTH 12.4 % (11.5-15.2)
[2017-01-04 07:38] LABS: ANION GAP 16 mEq/L (8-16); CALCIUM 9.7 mg/dL (8.5-10.4); CARBON DIOXIDE 23 mEq/l (22-31); CHLORIDE 91 mEq/L (97-110); CREATININE 0.7 mg/dL (0.7-1.3); GLOMERULAR FILTRATION RATE > 60; GLUCOSE 98 mg/dL (70-100); POTASSIUM 3.9 mEq/L (3.5-5.2); SODIUM 130 mEq/L (134-144)
[2017-01-04 07:49] LABS: TROPONIN I < 0.012 ng/mL (0.000-0.034)
[2017-01-04] MEDS ORDERED: LORazepam 2 MG/ML INJ IVP ONE (08:17)
[2017-01-04 09:19] VITALS: PULSE 74
--- NOTE | 2017-01-04 09:30 | CPEKG ---
Heart Rate: 73 RR Interval: 822 P-R Interval: 160 QRSD Interval: 120 QT Interval: 412 QTC Interval: 454 P [place]: 69 QRS [place]: 51 T Wave [place]: 32 EKG Severity - ABNORMAL ECG - EKG Impression: SINUS RHYTHM EKG Impression: IVCD, CONSIDER ATYPICAL RBBB Electronically Signed By: Kelly Rivera 04-Jan-2017 18:41:59
[2017-01-04 10:19] VITALS: BP 112/74; TEMP 97.7; O2SAT 98
--- NOTE | 2017-01-04 14:04 | ASDISCHSUM ---
Discharge Information Plan Status: Medically Cleared to Leave: Discharge Date:01/04/2017 10:19 AM CM D/C Disposition: ADT D/C Disposition:Home, Routine, Self-Care Projected Discharge Date:01/04/2017 10:19 AM Transportation at D/C: Discharge Delay Reason: Follow-Up Date:01/04/2017 10:19 AM Discharge Slot: Final Diagnosis: Placement Information Patient Contact Information Contact Name:NATALIE Relationship:Father Address: Work Phone: City: [facility] Phone: [facility]/[employer] Code: Email: Financial Information Financial Class:Self-Pay Primary Plan Desc:SELF PAY Primary Plan Number: Secondary Plan Desc: Secondary Plan Number: Assessment Information Intervention Information
== END 2017-01-04 10:19 | disposition home or self-care (01) ==
LOC: EEVIPCON 06:45
DX: R07.89 Other chest pain (principal); F14.90 Cocaine use, unspecified, uncomplicated
CPT/HCPCS: 96374; J2060

== ENCOUNTER 2017-02-02 14:41 | Emergency (ER) | payer MEDICAID ==
--- NOTE | 2017-02-02 16:52 | EDPHY ---
H & P Stated Complaint: parasite infection, "worms in feces" pain all over muscle spasms Source: Patient Exam Limitations: No limitations - Personal History Current Tetanus Diphtheria and Acellular Pertussis (TDAP): Yes - Medical/Surgical History Hx Asthma: No Hx Chronic Respiratory Disease: No Hx Diabetes: No Hx Cardiac Disease: No Hx Renal Disease: No Hx Cirrhosis: No Hx Alcoholism: No Hx HIV/AIDS: No Hx Splenectomy or Spleen Trauma: No Other PMH: generalized muscle cramping, 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, toenail infection, scrotal fungal infection - Social History Smoking Status: Never smoked Time Seen by Provider: 02/02/17 16:51 HPI/ROS: HPI: This is a 36-year-old male presents with Chief Complaint: parasite infection, "worms in feces" pain all over muscle spasms Location: GI Quality: Worms in stool Duration: 2-4 weeks Signs and Symptoms: no fever, + nausea, no vomiting, no hematemesis, + blood in stool, no abdominal bloating, no diarrhea, no back pain, no urinary symptoms, no testicular/groin pain, no indigestion, no chest pain, no shortness of breath Timing: Daily Severity: Moderate Context: Patient complains of worms in his feces, time. Varies from 2-4 weeks and he told nurse since he was age 26. He reports that this is a daily occurrence. He also reports blood in his stool in severe cramping constant abdominal pain that is generalized in nature. Complains of anal pruritus worse at night. + nausea but no vomiting. No history of abdominal surgeries. Has not traveled outside the country or taken antibiotics recently. He reports that he still able to eat and drink normally. After 2 hours in the waiting room ; patient called EMS and now c/o anterior chest pain-nonradiating/has narc letter. Modifying Factors: Comment: ROS: see HPI Constitutional: No fever, no chills, no weight loss Eyes: No blurred vision Respiratory: No shortness of breath, no cough Cardiovascular: No chest pain, no palpitations Gastrointestinal: + nausea, no vomiting, no diarrhea, no hematemesis, + blood in stool Genitourinary: No dysuria, no blood in urine Extremities: No myalgias, no edema Neurologic: No weakness, no numbness Skin: No rashes, no petechiae Hematologic: No bruising, no bleeding MEDICAL/SURGICAL/SOCIAL HISTORY: Medical history: generalized muscle cramping, 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, toenail infection , scrotal fungal infection Surgical history: Denies Social history: Narcotic abuse. CONSTITUTIONAL: Anxious well-appearing white male, awake and alert, no obvious distress HEENT: Atraumatic and normocephalic, PERRL, EOMI. Tympanic membranes clear. Oropharynx clear, no exudate and moist pink mucosa. Airway patent. No lymphadenopathy. No meningismus. Cardiovascular: Normal S1/S2, regular rate, regular rhythm, without murmur rub or gallop. PULMONARY/CHEST: Symmetrical and nontender. Clear to auscultation bilaterally. Good air movement. No accessory muscle usage. ABDOMEN: Soft, nondistended, moderate generalized nonfocal tenderness, no rebound, no guarding, no peritoneal signs, no masses or organomegaly. No CVAT. RECTAL: Patient adamantly refused exam EXTREMITIES: 2/2 pulses, no deformities, no clubbing, no cyanosis or edema. NEUROLOGICAL: no focal neuro deficits. GCS 15. SKIN: Warm and dry, no erythema. no rash. Good capillary refill. (Ana,Terra) Constitutional: Initial Vital Signs Temperature (C) 36.9 C 02/02/17 14:52 Heart Rate 74 02/02/17 14:52 Respiratory Rate 68 H 02/02/17 14:52 Blood Pressure 146/99 H 02/02/17 14:52 O2 Sat (%) 100 02/02/17 14:52 O2 Delivery Mode Room Air Allergies/Adverse Reactions: gluten Allergy (Verified 10/08/16 16:26) Milk Containing Products [dairy] Allergy (Verified 10/08/16 16:26) topical steroids Allergy (Uncoded 12/27/16 10:05) Home Medications: Medication Instructions Recorded Herbals/Supplements -Info Only 1 ea PO DAILY 10/08/16 Acetaminophen [Tylenol 325mg (*)] 650 mg PO Q4HRS PRN #0 tab 10/10/16 Ibuprofen [Motrin (*)] 400 mg PO Q6HRS PRN #0 tab 10/10/16 Polyethylene Glycol 3350 [Miralax 17 gm PO DAILY PRN #0 pkt 10/10/16 17 gm (*)] diphenhydrAMINE [Benadryl 25 MG 25 - 50 mg PO Q6HRS PRN #0 cap 10/10/16 (*)] oxyCODONE IR [Oxycodone Ir (*)] 5 mg PO Q4H PRN #12 tab 10/10/16 predniSONE 40 mg PO DAILY #20 tablet 10/10/16 Hydrocodone/APAP 5/325 [Milligan 1 tab PO Q6H PRN #8 tab 12/27/16 5/325 (RX)] Dicyclomine [Bentyl 20 MG (*)] 20 mg PO Q6 PRN #12 tab 02/02/17 Medical Decision Making - Diagnostics Imaging Results: Imaging Impressions Abdomen CT 02/02/17 16:59 Impression: 1. Mild, diffuse omental and mesenteric edema may reflect intravenous fluid administration versus underlying enteritis. 2. 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 If of concern, this can be further evaluated with nonemergent MRI without and with contrast. Dr. Velazco discussed these findings by telephone with Karen Perez at 2016 19:54. ED Course/Re-evaluation: The patient was evaluated and managed by the physician's assistant vice president. My cosignature indicates that I reviewed the chart and I agree with the findings and plan of care as documented. I am the secondary supervising physician. ( Kamilah Gan) Labs, stool studies, IV fluids, IV medications, CT abdomen and pelvis scan ordered Afebrile and no systemic signs. Given 1 L normal saline and IV promethazine. Guaiac negative 1730: Labs reviewed and grossly unremarkable 1800: Patient continues to complain of 12/10 pain. Given IV Haldol. Stool cultures negative. 1954: Called by radiologist who says that CT abdomen and pelvis scan shows no acute intra-abdominal process. 1999: Reassessed patient and repeat abdominal exam soft. Asking for food and water to drink and to be discharged home. (Karen Perez) Differential Diagnosis: Abdominal pain including but not limited to appendicitis, cholecystitis, gastritis and urinary tract infection. (Karen Perez) - Data Points Laboratory Results: Laboratory Results 02/02/17 17:39 02/02/17 17:39 02/02/17 02/02/17 02/02/17 19:15 17:39 17:39 WBC 5.39 10^3/uL 10^3/uL (3.80-9.50) RBC 5.05 10^6/uL 10^6/uL (4.40-6.38) Hgb 17.7 g/dL H g/dL (13.7-17.5) Hct 48.9 % % (40.0-51.0) MCV 96.8 fL fL (81.5-99.8) MCH 35.0 pg H pg (27.9-34.1) MCHC 36.2 g/dL g/dL (32.4-36.7) RDW 12.2 % % (11.5-15.2) Plt Count 185 10^3/uL 10^3/uL (150-400) MPV 9.7 fL fL (8.7-11.7) Neut % (Auto) 73.4 % % (39.3-74.2) Lymph % (Auto) 18.2 % % (15.0-45.0) [place] % (Auto) 7.2 % % (4.5-13.0) Eos % (Auto) 0.4 % L % (0.6-7.6) Baso % (Auto) 0.4 % % (0.3-1.7) Nucleat RBC Rel Count 0.0 % % (0.0-0.2) Absolute Neuts (auto) 3.96 10^3/uL 10^3/uL (1.70-6.50) Absolute Lymphs (auto) 0.98 10^3/uL L 10^3/uL (1.00-3.00) Absolute Monos (auto) 0.39 10^3/uL 10^3/uL (0.30-0.80) Absolute Eos (auto) 0.02 10^3/uL L 10^3/uL (0.03-0.40) Absolute Basos (auto) 0.02 10^3/uL 10^3/uL (0.02-0.10) Absolute Nucleated RBC 0.00 10^3/uL 10^3/uL (0-0.01) Immature Gran % 0.4 % % (0.0-1.1) Immature Gran # 0.02 10^3/uL 10^3/uL (0.00-0.10) Sodium 137 mEq/L mEq/L (134-144) Potassium 4.4 mEq/L mEq/L (3.5-5.2) Chloride 95 mEq/L L mEq/L (97-110) Carbon Dioxide 22 mEq/l mEq/l (22-31) Anion Gap 20 mEq/L H mEq/L (8-16) BUN 14 mg/dL mg/dL (7-23) Creatinine 0.8 mg/dL mg/dL (0.7-1.3) Estimated GFR > 60 Glucose 77 mg/dL mg/dL (70-100) Calcium 10.6 mg/dL H mg/dL (8.5-10.4) Total Bilirubin 0.5 mg/dL mg/dL (0.1-1.4) Conjugated Bilirubin 0.2 mg/dL mg/dL (0.0-0.5) Unconjugated Bilirubin 0.3 mg/dL mg/dL (0.0-1.1) AST 38 IU/L IU/L (17-59) ALT 52 IU/L IU/L (21-72) Alkaline Phosphatase 127 IU/L H IU/L (38-126) Total Protein 9.3 g/dL H g/dL (6.3-8.2) Albumin 5.5 g/dL H g/dL (3.5-5.0) Lipase 87 IU/L IU/L (23-300) Urine Color COLORLESS Urine Appearance CLEAR Urine pH 6.0 (5.0-7.5) Ur Specific [place] 1.015 (1.002-1.030) Urine Protein NEGATIVE (NEGATIVE) Urine Ketones TRACE H (NEGATIVE) Urine Blood NEGATIVE (NEGATIVE) Urine Nitrate NEGATIVE (NEGATIVE) Urine Bilirubin NEGATIVE (NEGATIVE) Urine Urobilinogen NEGATIVE EU EU (0.2-1.0) Ur Leukocyte Esterase NEGATIVE (NEGATIVE) Urine Glucose NEGATIVE (NEGATIVE) Stool Concentration Stool Occult Bld Scrn Stool Ova & Parasites Parasite Trichrome Direct Microscop Exam 02/02/17 17:37 WBC RBC Hgb Hct MCV MCH MCHC RDW Plt Count MPV Neut % (Auto) Lymph % (Auto) [place] % (Auto) Eos % (Auto) Baso % (Auto) Nucleat RBC Rel Count Absolute Neuts (auto) Absolute Lymphs (auto) Absolute Monos (auto) Absolute Eos (auto) Absolute Basos (auto) Absolute Nucleated RBC Immature Gran % Immature Gran # Sodium Potassium Chloride Carbon Dioxide Anion Gap BUN Creatinine Estimated GFR Glucose Calcium Total Bilirubin Conjugated Bilirubin Unconjugated Bilirubin AST ALT Alkaline Phosphatase Total Protein Albumin Lipase Urine Color Urine Appearance Urine pH Ur Specific [place] Urine Protein Urine Ketones Urine Blood Urine Nitrate Urine Bilirubin Urine Urobilinogen Ur Leukocyte Esterase Urine Glucose Stool Concentration Cancelled Stool Occult Bld Scrn NEGATIVE (NEGATIVE) Stool Ova & Parasites Cancelled Parasite Trichrome Cancelled Direct Microscop Exam Cancelled Microbiology Results: MICROBIOLOGY 02/02/17 17:37 Stool Gastrointestinal Tract Panel (PCR) - Final No Organism Detected Medications Given: Discontinued Medications Haloperidol Lactate (Haldol Injection) 2.5 mg IVP EDNOW ONE Stop: 02/02/17 17:56 Last Admin: 02/02/17 18:13 Dose: 2.5 mg Sodium Chloride (Ns) 1,000 mls @ 0 mls/hr IV EDNOW ONE; Wide Open PRN Reason: Protocol Stop: 02/02/17 16:59 Last Admin: 02/02/17 17:38 Dose: 1,000 mls Promethazine HCl (Phenergan) 25 mg IVP EDNOW ONE Stop: 02/02/17 16:59 Last Admin: 02/02/17 17:38 Dose: 25 mg Departure - Departure Disposition: Home, Routine, Self-Care Clinical Impression: Chronic generalized abdominal pain Condition: Good Instructions: Abdominal Pain (ED) Additional Instructions: Your labs and CT abdomen and pelvis scan today were unremarkable. You do not have blood in her stool. Your stool does not have any organisms growing. Please follow up with Gastroenterology for further evaluation. Referrals: Lucius Aaron MD [Medical Doctor] - As per Instructions Prescriptions: Dicyclomine [Bentyl 20 MG (*)] 20 mg PO Q6 PRN #12 tab PRN Reason: Pain, Moderate
[2017-02-02] MEDS ORDERED: PROMETHAZINE HCL 25 MG/ML INJ IVP ONE (16:58)
[2017-02-02] MEDS ORDERED: NS 1,000 ML IV ONE (16:58)
[2017-02-02 17:47] LABS: % IMMATURE GRANULYOCYTES 0.4 % (0.0-1.1); ABSOLUTE IMMATURE GRANULOCYTES 0.02 10^3/uL (0.00-0.10); ADD DIFF? NO; ADD MORPH? NO; ADD SCAN? NO; ATYPICAL LYMPHOCYTE FLAG 0 (0-99); FRAGMENT RBC FLAG 0 (0-99); HEMATOCRIT 48.9 % (40.0-51.0); HEMOGLOBIN 17.7 g/dL (13.7-17.5); LEFT SHIFT FLG 0 (0-99); LIPEMIA HEMOLYSIS FLAG 90 (0-99); MEAN CELL HEMOGLOBIN CONCENTR. 36.2 g/dL (32.4-36.7); MEAN CELL VOLUME 96.8 fL (81.5-99.8); MEAN PLATELET VOLUME 9.7 fL (8.7-11.7); PLATELET CLUMPS FLAG 0 (0-99); PLATELET COUNT 185 10^3/uL (150-400); RED BLOOD CELL COUNT 5.05 10^6/uL (4.40-6.38); RED CELL DISTRIBUTION WIDTH 12.2 % (11.5-15.2)
[2017-02-02] MEDS ORDERED: HALOPERIDOL LACT 5 MG/ML INJ IVP ONE (17:55)
[2017-02-02 18:04] LABS: ALANINE AMINOTRANSFERASE 52 IU/L (21-72); ALBUMIN 5.5 g/dL (3.5-5.0); ALKALINE PHOSPHATASE 127 IU/L (38-126); ANION GAP 20 mEq/L (8-16); ASPARTATE AMINOTRANSFERASE 38 IU/L (17-59); BILIRUBIN,TOTAL 0.5 mg/dL (0.1-1.4); BILIRUBIN-CONJUGATED 0.2 mg/dL (0.0-0.5); BILIRUBIN-UNCONJUGATED 0.3 mg/dL (0.0-1.1); CALCIUM 10.6 mg/dL (8.5-10.4); CARBON DIOXIDE 22 mEq/l (22-31); CHLORIDE 95 mEq/L (97-110); CREATININE 0.8 mg/dL (0.7-1.3); GLOMERULAR FILTRATION RATE > 60; GLUCOSE 77 mg/dL (70-100); POTASSIUM 4.4 mEq/L (3.5-5.2); SODIUM 137 mEq/L (134-144); TOTAL PROTEIN 9.3 g/dL (6.3-8.2)
[2017-02-02] MEDS ORDERED: IOPAMIDOL (ISOVUE-300) 100 ML BTL ONE ×2 (18:25→18:37)
[2017-02-02 19:31] LABS: COLOR COLORLESS; LEUKOCYTE ESTERASE,URINE NEGATIVE (NEGATIVE); NITRITE,URINE NEGATIVE (NEGATIVE)
[2017-02-02 20:09] VITALS: BP 132/69; PULSE 78; RESP 16; TEMP 98.2; O2SAT 97
== END 2017-02-02 20:09 | disposition home or self-care (01) ==
DX: R10.84 Generalized abdominal pain (principal); G89.29 Other chronic pain; E86.9 Volume depletion, unspecified
CPT/HCPCS: 96374; J2550; Q9967

== ENCOUNTER 2017-05-05 11:52 | Emergency (ER) | payer SELFPAY ==
[2017-05-05 12:12] VITALS: BP 166/107; PULSE 67; RESP 18; TEMP 98.2; O2SAT 98
--- NOTE | 2017-05-05 12:40 | EDPHY ---
H & P Stated Complaint: possible parasite Time Seen by Provider: 05/05/17 11:54 HPI/ROS: Chief Complaint: Possible parasite HPI: 36-year-old male states that he has been treated for chronic intestinal parasites since he was 21 years old. He is currently seeing a psychiatry adult physician and is being treated with an extrahepatic an herbal treatments. Patient states that he believes that he pulled part of a worm from his rectum this morning which was bleeding. He has also had some abdominal discomfort. He is requesting a laxative and further testing to find out what type of parasite this is. He has been seen multiple times in the emergency department for similar complaints. Denies any fevers or chills. ROS: 10 point Review of Systems is negative except as noted in the HPI. Social History: Denies smoking, denies alcohol, denies other drug use Family History: non-contributory Physical Exam: Gen: Awake, Alert, No Distress HEENT: Nose: no rhinorrhea Eyes: PERRLA, EOMI Mouth: Moist mucosa Neck: Supple, no JVD Chest: nontender, lungs clear to auscultation Heart: S1, S2 normal, no murmur Abd: Soft, non-tender, no guarding Rectal: Small non thrombosed hemorrhoid with a small anal fissure, no active bleeding Back: no CVA tenderness, no midline tenderness Ext: no edema, non-tender Skin: no rash Neuro: CN II-XII intact, Sensation grossly intact, Strength 5/5 in bilateral upper and lower extremities - Personal History Current Tetanus Diphtheria and Acellular Pertussis (TDAP): Yes - Medical/Surgical History Hx Asthma: No Hx Chronic Respiratory Disease: No Hx Diabetes: No Hx Cardiac Disease: No Hx Renal Disease: No Hx Cirrhosis: No Hx Alcoholism: No Hx HIV/AIDS: No Hx Splenectomy or Spleen Trauma: No Other PMH: generalized muscle cramping, 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, toenail infection, scrotal fungal infection, "parasite infections" - Social History Smoking Status: Never smoked Constitutional: Initial Vital Signs Temperature (C) 36.8 C 05/05/17 12:09 Heart Rate 67 05/05/17 12:09 Respiratory Rate 18 05/05/17 12:09 Blood Pressure 166/107 H 05/05/17 12:09 O2 Sat (%) 98 05/05/17 12:09 O2 Delivery Mode Room Air Allergies/Adverse Reactions: gluten Allergy (Verified 10/08/16 16:26) Milk Containing Products [dairy] Allergy (Verified 10/08/16 16:26) topical steroids Allergy (Uncoded 12/27/16 10:05) Home Medications: Medication Instructions Recorded Herbals/Supplements -Info Only 1 ea PO DAILY 10/08/16 Acetaminophen [Tylenol 325mg (*)] 650 mg PO Q4HRS PRN #0 tab 10/10/16 Ibuprofen [Motrin (*)] 400 mg PO Q6HRS PRN #0 tab 10/10/16 Medical Decision Making ED Course/Re-evaluation: 36-year-old male with a history of underlying mental illness presenting with concerns that he has a intestinal parasite. Patient does have small murmur Jerald's on his examination. I have explained to him that these other likely the source of his symptoms a when he is feeling. Patient is adamant that he has a parasite any at 90 is had since he was 21 years old. He wants me to give him a laxative now so that we can get the parasite out get a final diagnosis. I explained to him that even if we were to get the specimen out that pathology on it would take a couple days and we are not going to come up with a definitive diagnosis today. I have also explained that he exam is otherwise benign in his vital signs are normal. There is no evidence of acute emergent medical process. Patient then became irate and started screaming obscenities at me. He pulled out his IV and walked at the emergency depart. Departure - Departure Disposition: Against Medical Advice Clinical Impression: Rectal pain Condition: Good Referrals: [facility] [Other] - As per Instructions
== END 2017-05-05 12:34 | disposition left against medical advice (07) ==
LOC: EDUNIT#
DX: K62.89 Other specified diseases of anus and rectum (principal)

== ENCOUNTER 2017-05-05 21:44 | Emergency (ER) | payer SELFPAY ==
[2017-05-05 23:38] LABS: PLATELET COUNT 151 10^3/uL (150-400)
--- NOTE | 2017-05-05 23:42 | EDPHY ---
H & P Stated Complaint: rectal bleeding Time Seen by Provider: 05/05/17 23:27 HPI/ROS: HPI The patient presents with abdominal pain and rectal bleeding. The patient was seen about 12 hr ago in the emergency department for same. He feels he has a parasite which he has been dealing with since 21 years of age and he feels this is driving the majority of his symptoms. He says since he has left the emergency department he has had or abdominal pain and more rectal bleeding. He has diffuse abdominal pain which is worse in his lower quadrants which is described as a cramping in spasmodic pain. He says he has about 12 loose stools a day and sometimes feels something coming out of his rectum which he can talk gone though reduces. Today he has noticed bright red blood with his bowel movements in the toilet bowl. He denies any dark stools. He did have 1 episode of vomiting earlier today.. REVIEW OF SYSTEMS Constitutional: No fever, no chills. Eyes: No discharge. ENT: No sore throat. Cardiovascular: No chest pain, no palpitations. Respiratory: No cough, no shortness of breath. Gastrointestinal: See HPI Genitourinary: No hematuria. Musculoskeletal: No back pain. Skin: No rashes. Neurological: No headache. PMHx: Followed by an atropine past, being treated with a wormwood cleanse and garlic for his parasite Soc Hx: Lives with roommates, occasional alcohol use, occasional marijuana use PHYSICAL General Appearance: Alert, no distress Eyes: Pupils equal and round no pallor or injection ENT, Mouth: Mucous membranes moist Respiratory: There are no retractions, lungs are clear to auscultation Cardiovascular: Regular rate and rhythm Gastrointestinal: Abdomen is soft and non-tender, no masses, bowel sounds normal Rectal: There is trace amount of red blood on digital exam, external hemorrhoids are palpated just above the anal verge, no masses present Neurological: A&O, moves all extremities Skin: Warm and dry, no rashes Musculoskeletal: Neck is supple non tender Extremities: symmetrical, full range of motion Psychiatric: Patient is oriented X 3, there is no agitation Source: Patient Exam Limitations: No limitations - Medical/Surgical History Hx Asthma: No Hx Chronic Respiratory Disease: No Hx Diabetes: No Hx Cardiac Disease: No Hx Renal Disease: No Hx Cirrhosis: No Hx Alcoholism: No Hx HIV/AIDS: No Hx Splenectomy or Spleen Trauma: No Other PMH: generalized muscle cramping, 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, toenail infection, scrotal fungal infection, "parasite infections" - Social History Smoking Status: Never smoked Constitutional: Initial Vital Signs Temperature (C) 37.1 C 05/05/17 21:56 Heart Rate 69 05/05/17 21:56 Respiratory Rate 20 05/05/17 21:56 Blood Pressure 140/104 H 05/05/17 21:56 O2 Sat (%) 96 05/05/17 21:56 O2 Delivery Mode Room Air Allergies/Adverse Reactions: gluten Allergy (Verified 05/05/17 21:56) Milk Containing Products [dairy] Allergy (Verified 05/05/17 21:56) topical steroids Allergy (Uncoded 05/05/17 21:56) Home Medications: Medication Instructions Recorded Herbals/Supplements -Info Only 1 ea PO DAILY 10/08/16 Acetaminophen [Tylenol 325mg (*)] 650 mg PO Q4HRS PRN #0 tab 10/10/16 Ibuprofen [Motrin (*)] 400 mg PO Q6HRS PRN #0 tab 10/10/16 Medical Decision Making Differential Diagnosis: 36-year-old male reported 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 Now associated with bloody stools for the last 1 day. Seen in the emergency department earlier today. On rectal exam, there is a trace amount of red blood with no masses present. He does have external hemorrhoids. I feel these are most likely the cause of his rectal bleeding. In the emergency department, patient was given Toradol for pain with good result. He had labs checked which did reveal slightly low sodium of 127. He has been low before. He was given 1 L of normal saline given his report of diarrhea this may be the cause of his hyponatremia. He felt much better after this and well enough to go home. I will refer him to gastroenterology. - Data Points Laboratory Results: Laboratory Results 05/05/17 23:20 05/05/17 23:20 05/05/17 05/05/17 23:20 23:20 WBC 6.56 10^3/uL 10^3/uL (3.80-9.50) RBC 4.43 10^6/uL 10^6/uL (4.40-6.38) Hgb 15.2 g/dL g/dL (13.7-17.5) Hct 41.1 % % (40.0-51.0) MCV 92.8 fL fL (81.5-99.8) MCH 34.3 pg H pg (27.9-34.1) MCHC 37.0 g/dL H g/dL (32.4-36.7) RDW 12.1 % % (11.5-15.2) Plt Count 151 10^3/uL 10^3/uL (150-400) MPV 9.1 fL fL (8.7-11.7) Neut % (Auto) 71.0 % % (39.3-74.2) Lymph % (Auto) 15.4 % % (15.0-45.0) [place] % (Auto) 12.2 % % (4.5-13.0) Eos % (Auto) 0.6 % % (0.6-7.6) Baso % (Auto) 0.3 % % (0.3-1.7) Nucleat RBC Rel Count 0.0 % % (0.0-0.2) Absolute Neuts (auto) 4.66 10^3/uL 10^3/uL (1.70-6.50) Absolute Lymphs (auto) 1.01 10^3/uL 10^3/uL (1.00-3.00) Absolute Monos (auto) 0.80 10^3/uL 10^3/uL (0.30-0.80) Absolute Eos (auto) 0.04 10^3/uL 10^3/uL (0.03-0.40) Absolute Basos (auto) 0.02 10^3/uL 10^3/uL (0.02-0.10) Absolute Nucleated RBC 0.00 10^3/uL 10^3/uL (0-0.01) Immature Gran % 0.5 % % (0.0-1.1) Immature Gran # 0.03 10^3/uL 10^3/uL (0.00-0.10) Sodium 127 mEq/L L mEq/L (135-145) Potassium 4.3 mEq/L mEq/L (3.5-5.2) Chloride 88 mEq/L L mEq/L (97-110) Carbon Dioxide 26 mEq/l mEq/l (22-31) Anion Gap 13 mEq/L mEq/L (8-16) BUN 11 mg/dL mg/dL (7-23) Creatinine 0.6 mg/dL L mg/dL (0.7-1.3) Estimated GFR > 60 Glucose 86 mg/dL mg/dL (70-100) Calcium 9.9 mg/dL mg/dL (8.5-10.4) Total Bilirubin 0.7 mg/dL mg/dL (0.1-1.4) Conjugated Bilirubin 0.2 mg/dL mg/dL (0.0-0.5) Unconjugated Bilirubin 0.5 mg/dL mg/dL (0.0-1.1) AST 37 IU/L IU/L (17-59) ALT 50 IU/L IU/L (21-72) Alkaline Phosphatase 104 IU/L IU/L (38-126) Total Protein 7.5 g/dL g/dL (6.3-8.2) Albumin 4.6 g/dL g/dL (3.5-5.0) Medications Given: Discontinued Medications Sodium Chloride (Ns) 1,000 mls @ 0 mls/hr IV EDNOW ONE; Wide Open PRN Reason: Protocol Stop: 05/05/17 23:45 Last Admin: 05/05/17 23:49 Dose: 1,000 mls Ketorolac Tromethamine (Toradol) 15 mg IVP EDNOW ONE Stop: 05/05/17 23:57 Last Admin: 05/06/17 00:04 Dose: 15 mg Departure - Departure Disposition: Home, Routine, Self-Care Clinical Impression: Rectal bleeding, Abdominal pain, External hemorrhoid Condition: Good Instructions: Rectal Bleeding (ED) Additional Instructions: Please call the supervisor [employer] to arrange for follow-up. Referrals: Zandra Mathew MD [Medical Doctor] - As per Instructions [facility],. [Clinic] - As per Instructions
[2017-05-05] MEDS ORDERED: NS 1,000 ML IV ONE (23:44)
[2017-05-05] MEDS ORDERED: KETOROLAC 15 MG/1 ML SDV ONE (23:52)
[2017-05-05] MEDS: KETOROLAC 15 MG/1 ML SDV IVP ONE (23:58)
[2017-05-06] MEDS: KETOROLAC 15 MG/1 ML SDV IVP ONE (00:04)
[2017-05-06 01:13] VITALS: BP 136/73; PULSE 78; RESP 16; TEMP 98.2; O2SAT 97
== END 2017-05-06 01:11 | disposition home or self-care (01) ==
DX: K64.4 Residual hemorrhoidal skin tags (principal); E86.9 Volume depletion, unspecified
CPT/HCPCS: 96374; J1885

== ENCOUNTER 2017-06-28 12:45 | Inpatient (IN) | payer SELFPAY ==
--- NOTE | 2017-06-28 13:07 | CPEKG ---
Heart Rate: 64 RR Interval: 938 P-R Interval: 136 QRSD Interval: 114 QT Interval: 412 QTC Interval: 425 P [place]: 68 QRS [place]: 110 T Wave [place]: 56 EKG Severity - ABNORMAL ECG - EKG Impression: SINUS RHYTHM EKG Impression: NONSPECIFIC INTRAVENTRICULAR CONDUCTION DELAY Electronically Signed By: Lucius Ann 28-Jun-2017 15:22:00
[2017-06-28] MEDS ORDERED: MAG HYDROX/AL HYDROX/SIMETH 30 ML UDCUP PO ONE (13:32)
[2017-06-28] MEDS ORDERED: LIDOCAINE 2% VISCOUS 15 ML UDCUP PO ONE (13:32)
[2017-06-28 14:03] LABS: PLATELET COUNT 195 10^3/uL (150-400)
--- NOTE | 2017-06-28 14:24 | EDPHY ---
H & P Stated Complaint: " feels like an airbubble in my chest", vomited x1 this am. rad verically. Time Seen by Provider: 06/28/17 13:18 HPI/ROS: Chief Complaint: Chest pain, belching HPI: 36-year-old male woke with a burning sensation in his central chest going up to his throat this morning. Patient states he has had a lot of belching which makes it better. Does not have a history of similar in the past. Does admit the drinking fairly heavily recently. Vomited once which had a little bit of pain and some white flecks in it. No fevers or chills. 1 episode of blood in his emesis. No melena or hematochezia, no coffee-grounds. ROS: 10 point Review of Systems is negative except as noted in the HPI. PMH: Denies Social History: No smoking, occasional heavy alcohol, no recreational drug use Family History: non-contributory Physical Exam: Gen: Awake, Alert, No Distress HEENT: Nose: no rhinorrhea Eyes: PERRLA, EOMI Mouth: Moist mucosa Neck: Supple, no JVD Chest: nontender, lungs clear to auscultation Heart: S1, S2 normal, no murmur Abd: Soft, moderate epigastric tenderness, no guarding Back: no CVA tenderness, no midline tenderness Ext: no edema, non-tender Skin: no rash Neuro: CN II-XII intact, Sensation grossly intact, Strength 5/5 in bilateral upper and lower extremities - Personal History Current Tetanus/Diphtheria Vaccine: Yes Current Tetanus Diphtheria and Acellular Pertussis (TDAP): Yes - Medical/Surgical History Hx Asthma: No Hx Chronic Respiratory Disease: No Hx Diabetes: No Hx Cardiac Disease: No Hx Renal Disease: No Hx Cirrhosis: No Hx Alcoholism: No Hx HIV/AIDS: No Hx Splenectomy or Spleen Trauma: No Other PMH: generalized muscle cramping, 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, toenail infection, scrotal fungal infection, "parasite infections" - Social History Smoking Status: Never smoked Constitutional: Initial Vital Signs Temperature (C) 36.8 C 06/28/17 12:50 Heart Rate 73 06/28/17 12:50 Respiratory Rate 16 06/28/17 12:50 Blood Pressure 136/90 H 06/28/17 12:50 O2 Sat (%) 100 06/28/17 12:50 O2 Delivery Mode Room Air Allergies/Adverse Reactions: gluten Allergy (Verified 05/05/17 21:56) Milk Containing Products [dairy] Allergy (Verified 05/05/17 21:56) topical steroids Allergy (Uncoded 05/05/17 21:56) Home Medications: Medication Instructions Recorded Herbals/Supplements -Info Only 1 ea PO DAILY 10/08/16 Acetaminophen [Tylenol 325mg (*)] 650 mg PO Q4HRS PRN #0 tab 10/10/16 Ibuprofen [Motrin (*)] 400 mg PO Q6HRS PRN #0 tab 10/10/16 Medical Decision Making - Diagnostics EKG Interpretation: ECG time 1:04 p.m., sinus rhythm with a rate of 64, nonspecific your interventricular conduction delay. There is ST elevation in V2 which is not reciprocal or continuous at. As compared to his ECG from 01/04/2017 the patient has pseudonormalization of his T-waves. Imaging Results: Imaging Impressions Chest X-Ray 06/28/17 13:32 Impression: Stable negative chest.. Imaging: I viewed and interpreted images myself ED Course/Re-evaluation: Patient had minimal relief the GI cocktail. A troponin is negative. Chest x- ray is negative. Will dose with some morphine here and reassess. The patient is ECG shows pseudo normalization of the T-waves with some concerning morphology in V2. He patient's have been relief with morphine. Case discussed with Dr. Mccracken, hospitalist. She will admit to [facility] for further evaluation. I have also added on Protonix, aspirin, and LFTs. - Data Points Laboratory Results: Laboratory Results 06/28/17 13:56 06/28/17 13:56 06/28/17 06/28/17 13:56 13:56 WBC 9.94 10^3/uL H 10^3/uL (3.80-9.50) RBC 4.45 10^6/uL 10^6/uL (4.40-6.38) Hgb 15.3 g/dL g/dL (13.7-17.5) Hct 41.1 % % (40.0-51.0) MCV 92.4 fL fL (81.5-99.8) MCH 34.4 pg H pg (27.9-34.1) MCHC 37.2 g/dL H g/dL (32.4-36.7) RDW 12.5 % % (11.5-15.2) Plt Count 195 10^3/uL 10^3/uL (150-400) MPV 8.8 fL fL (8.7-11.7) Neut % (Auto) 83.4 % H % (39.3-74.2) Lymph % (Auto) 4.9 % L % (15.0-45.0) Hardy % (Auto) 11.0 % % (4.5-13.0) Eos % (Auto) 0.1 % L % (0.6-7.6) Baso % (Auto) 0.3 % % (0.3-1.7) Nucleat RBC Rel Count 0.0 % % (0.0-0.2) Absolute Neuts (auto) 8.29 10^3/uL H 10^3/uL (1.70-6.50) Absolute Lymphs (auto) 0.49 10^3/uL L 10^3/uL (1.00-3.00) Absolute Monos (auto) 1.09 10^3/uL H 10^3/uL (0.30-0.80) Absolute Eos (auto) 0.01 10^3/uL L 10^3/uL (0.03-0.40) Absolute Basos (auto) 0.03 10^3/uL 10^3/uL (0.02-0.10) Absolute Nucleated RBC 0.00 10^3/uL 10^3/uL (0-0.01) Immature Gran % 0.3 % % (0.0-1.1) Immature Gran # 0.03 10^3/uL 10^3/uL (0.00-0.10) Sodium 126 mEq/L L mEq/L (135-145) Potassium 4.5 mEq/L mEq/L (3.5-5.2) Chloride 88 mEq/L L mEq/L (97-110) Carbon Dioxide 25 mEq/l mEq/l (22-31) Anion Gap 13 mEq/L mEq/L (8-16) BUN 9 mg/dL mg/dL (7-23) Creatinine 0.5 mg/dL L mg/dL (0.7-1.3) Estimated GFR > 60 Glucose 80 mg/dL mg/dL (70-100) Calcium 9.6 mg/dL mg/dL (8.5-10.4) Troponin I < 0.012 ng/mL ng/mL (0.000-0.034) Medications Given: Discontinued Medications Al Hydroxide/Mg Hydroxide (Maalox Susp) 30 ml PO ONCE ONE Stop: 06/28/17 13:33 Last Admin: 06/28/17 13:51 Dose: 30 ml Lidocaine (Lidocaine 2% Viscous) 15 ml PO ONCE ONE Stop: 06/28/17 13:33 Last Admin: 06/28/17 13:51 Dose: 15 ml Morphine Sulfate (Morphine) 4 mg IVP ONCE ONE Stop: 06/28/17 14:29 Last Admin: 06/28/17 15:13 Dose: 4 mg Departure - Departure Referrals: NONE *PRIMARY CARE P,. [Primary Care Provider] - As per Instructions
[2017-06-28] MEDS ORDERED: PANTOPRAZOLE SODIUM 40 MG VIAL IVP ONE (15:12)
[2017-06-28] MEDS ORDERED: ASPIRIN 81 MG CHEWABLE TAB PO ONE (15:12)
[2017-06-28] MEDS ORDERED: HYDROmorphONE/DILAUDID 2 MG/ML INJ IVP PRN (15:43)
[2017-06-28] MEDS ORDERED: oxyCODONE IR 5 MG TAB PO PRN (15:49)
[2017-06-28] MEDS ORDERED: ACETAMINOPHEN 325 MG TAB PO PRN (15:49)
[2017-06-28] MEDS ORDERED: PROMETHAZINE HCL 25 MG/ML INJ IVP PRN (15:49)
[2017-06-28] MEDS ORDERED: ONDANSETRON 4 MG/2 ML VIAL IVP PRN (15:49)
[2017-06-28] MEDS ORDERED: NS 1,000 ML IV SCH (16:00)
[2017-06-28] MEDS: THIAMINE HCL 500 MG in NS 500 ML IV SCH (17:11)
[2017-06-28] MEDS ORDERED: IOPAMIDOL (ISOVUE-300) 100 ML BTL ONE (17:11)
[2017-06-28] MEDS: LORazepam 2 MG/ML INJ IVP PRN (17:11)
[2017-06-28] MEDS: PANTOPRAZOLE SODIUM 40 MG VIAL IVP SCH (18:29)
--- NOTE | 2017-06-28 19:23 | GHP ---
[f rep st] HISTORY AND PHYSICAL DATE OF ADMISSION: 06/28/2017 CHIEF COMPLAINT: Epigastric pain. HISTORY: Malcolm is a 36-year-old male who presents with severe epigastric pain, lower chest pain. I t feels like a severe gas pain, but it gets much worse when he belches. The pain is so severe, he is crying. Complains of acute onset at 6 o'clock this morning with associated nausea and vomiting. He does have a history of chronic abdominal pain which he attributes to a chronic parasite infestation, but states this is much different. He feels a little short of breath. Denies any diarrhea or const ipation. There is a little bit of radiation to the back. The patient claims to have caught a tapeworm in [place] at age 21, and has had chronic problems ever s alyce. He says he frequently has evidence of large worms in his stool as well as vomiting up pieces o f a parasite today. He is currently under protocol with a media marketing specialist. He has never been diagnosed o r treated by an MD for this. PAST MEDICAL HISTORY: 1. Eczema. 2. Genital HSV. 3. Scrotal infection which was eventually determined to be contact dermatitis. MEDICATIONS: Please see computer record for full detailed list. ALLERGIES: Gluten. SOCIAL HISTORY: No smoking. He drinks 6 drinks per day. Previously heavier 1 bottle per day. He l rupal in a town home with roommates. 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 REVIEW OF SYSTEMS: Complete review of system obtained. Review of systems negative regarding constit utional, HEENT, GI, cardiovascular, vascular, , hematologic, skin, musculoskeletal, endocrine, psyc h, except for positives and negative as in HPI. FAMILY HISTORY: Reviewed, noncontributory to presenting complaint. PHYSICAL EXAMINATION: GENERAL: Well-developed, well-nourished male in obvious distress, crying due to claims of excruciating abdominal pain. VITAL SIGNS: Temp is 36.8, pulse 73, blood pressure 136/9 0, saturating 100% on room air. HEENT: Eye examination: Normal conjunctivae. Pupils react to ligh t. ENT: Normal ears and nose. Hearing intact. Normal teeth. Oropharynx moist. NECK: Trachea mi dline. No thyromegaly. CHEST: Normal, except lungs clear to auscultation bilaterally. CARDIOVASCU LAR: Regular rhythm. No murmur. No extremity edema. ABDOMEN: Soft. Minimal tenderness on deep p alpation. No hepatosplenomegaly. SKIN: Warm, dry, intact without rash. MUSCULOSKELETAL: No cyano sis or clubbing. Strength 5/5 upper and lower extremities. NEUROVASCULAR: Intact. Normal sensatio n to light touch. PSYCHIATRIC: Alert and oriented x3. Normal affect. Normal judgment and insight. Normal memory. LABORATORY DATA: White count 9.94, hematocrit 41.1, platelets 195. Sodium 126, potassium 4.5, chlor dena 88, bicarb 25, BUN 9, creatinine 0.5, glucose of 80. Troponins negative. RADIOLOGY: Chest x-ray is negative. DIAGNOSTICS: EKG viewed by me, personal interpretation: Normal sinus rhythm, no ST-T wave changes. Old record reviewed. His last EKG did show some anterior T-wave inversions; therefore, the current EKG may represent pseudonormalization. I spoke with emergency room provider, Dr. Malick Mandel, who d esired to admit the patient for chest pain observation given these new EKG changes. ASSESSMENT/PLAN: 1. Severe epigastric pain with a little bit of radiation to the chest. I suspect this is GI more th an cardiac. His LFTs and lipase are normal. He is in severe distress and crying due to severity of the pain. We will check a CT scan of the abdomen and pelvis. Could consider GI consultation for end oscopy if it persists to this degree. We will start him empirically on a proton pump inhibitor. Dung l prescribe IV Dilaudid, but would rapidly deescalate narcotics if his workup is negative. We will c heck a stool for O and P. 2. EKG changes. There is evidence of possible pseudonormalization as he had pretty significant ante rior T-wave inversions on his EKG during the last admission that have now resolved. We will follow s erial troponins and EKGs. I would consider an exercise treadmill test; however, currently he is in t oo much GI distress to consider at this time. My suspicion for his current presentation of pain bein g cardiac is low. 3. Hyponatremia. I suspect he has hypovolemia. Will check a urine sodium. We will hydrate overnig ht with IV fluids and recheck in the morning. 4. Heavy alcohol use. Will place him on a CIWA protocol. Monitor for full withdrawal. CODE STATUS: Full. ADMISSION STATUS: Will admit to observation. Reevaluate tomorrow regarding ongoing need for hospita lization. DVT PROPHYLAXIS: He is low risk. Will ambulate early. /[id number]/MODL
[2017-06-28] MEDS: KETOROLAC 30 MG/1 ML SDV IVP PRN (20:33)
[2017-06-28] MEDS ORDERED: MAGNESIUM HYDROXIDE 30 ML UDCUP PO PRN (21:22)
[2017-06-28] MEDS ORDERED: LACTULOSE 20 GM/30 ML UDCUP PO PRN (21:22)
[2017-06-28] MEDS ORDERED: POLYETHYLENE GLYCOL 3350 17 GM PKT PO PRN (21:22)
[2017-06-28] MEDS ORDERED: BISACODYL 10 MG SUPP PR PRN (21:22)
[2017-06-28] MEDS ORDERED: HYDROmorphone HCL/NS 0.5 MG/ML SYR IVP ONE (21:45)
[2017-06-29] MEDS: KETOROLAC 30 MG/1 ML SDV IVP PRN ×2 (02:45→11:30)
[2017-06-29] MEDS: LORazepam 2 MG/ML INJ IVP PRN (02:58)
[2017-06-29 05:13] LABS: PLATELET COUNT 182 10^3/uL (150-400)
[2017-06-29] MEDS: THIAMINE HCL 500 MG in NS 500 ML IV SCH (08:09)
[2017-06-29] MEDS: PANTOPRAZOLE SODIUM 40 MG VIAL IVP SCH (08:10)
[2017-06-29] MEDS ORDERED: SENNOSIDES/DOCUSATE SODIUM TAB PO SCH (09:00)
--- NOTE | 2017-06-29 09:25 | CPEKG ---
Heart Rate: 81 RR Interval: 741 P-R Interval: 136 QRSD Interval: 114 QT Interval: 384 QTC Interval: 446 P [place]: 76 QRS [place]: 91 T Wave [place]: 60 EKG Severity - ABNORMAL ECG - EKG Impression: SINUS RHYTHM EKG Impression: INCOMPLETE RIGHT BUNDLE BRANCH BLOCK Electronically Signed By: Pancho Foy 01-Jul-2017 07:32:08
--- NOTE | 2017-06-29 11:29 | HOSPPROG ---
Hospitalist Progress Note Assessment/Plan: Patient is a 36-year-old male who presented severe epigastric pain as well as lower chest pain. He said it got worse with belching. I reviewed his CT scan of the abdomen. It showed some mild ileus without obstruction. His appendix is normal today is my 1st encounter with the patient. * severe epigastric pain -LFTs and lipase are normal -CT scan of the abdomen is stable -PPI bid and added Zantac -suspect it is alcohol gastritis -no pain during my physical exam * EKG changes -no significant change from first ekg done * hyponatremia -secondary to hypovolemia * heavy alcohol use -says he started drinking due to stress -has not had any seizures due to stopping *Cannibas use -2-3 times weekly *Plan: if he can eat and drink well today, will dc. Asked CM to talk to him about resources. Also, missed his court date on Wednesday due to being ill. Subjective: Lamine said his abdomen has been tender. Objective: Vital Signs Temp Pulse Resp BP Pulse Ox 37.2 C 81 15 107/68 97 06/29/17 11:10 06/29/17 11:10 06/29/17 11:10 06/29/17 11:10 06/29/17 11:10 Microbiology 06/28/17 19:00 Gastrointestinal Tract Panel (PCR) - Final Stool No Organism Detected Laboratory Results 06/29/17 04:56 06/29/17 04:56 06/28/17 06/29/17 06/30/17 05:59 05:59 05:59 Intake Total 500 550 Balance 500 550 - Physical Exam Constitutional: no apparent distress Eyes: PERRL Ears, Nose, Mouth, Throat: hearing normal Cardiovascular: regular rate and rhythym Respiratory: no respiratory distress Gastrointestinal: soft, non-tender abdomen, No guarding, No rebound, No distension Skin: warm Musculoskeletal: full muscle strength Neurologic: AAOx3 Psychiatric: interacting appropriately ICD10 Worksheet Patient Problems: Problems Problem Status Onset Diffuse papular rash Acute Erythema of external genitalia Acute Genital edema, male Acute Sprain of cervical neck Acute Thoracic back pain Acute
[2017-06-29] MEDS ORDERED: RANITIDINE SYRUP 15 MG/1 ML UDSYR PO SCH (11:45)
--- NOTE | 2017-06-29 12:06 | ASMTCMCOM ---
CM Note CM Note Notes: Spoke with MOLDING PROCESS TECHNICIAN & RN. Anticipate dc home independently when medically stable. MOLDING PROCESS TECHNICIAN reports pt missed his court date on Wednesday because he was here at [facility]. Discussed with RN. Documentation stating pt was here at [facility] was printed & will be provided to pt at time of dc. No other needs at this time. Date Signed: 06/29/2017 12:06 PM Electronically Signed By:Susan Earl RN
[2017-06-29 14:57] VITALS: BP 120/80; PULSE 89; RESP 21; TEMP 98.7; O2SAT 96
[2017-06-29] MEDS ORDERED: MAG HYDROX/AL HYDROX/SIMETH 30 ML UDCUP PO PRN (15:48)
--- NOTE | 2017-06-29 16:17 | PDMN ---
Medical Necessity Medical necessity: ongoing abd pain with eating, further monitoring, tx needed > 2 midnights. IV toradol, Ativan, thiamine, Fluids
--- NOTE | 2017-06-29 16:57 | ASMTCMCOM ---
CM Note CM Note Notes: Spoke with patient who was receptive to receiving A and D resources. Patient states he is seeing a counselor once per week and has started participating in a [employer]ism meditation group. 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 A packett of information and resources was left with him.He is feeling hopeful and will review the resources. He hopes to have private insurance soon. No further needs. CM is available should d/c needs arise. Date Signed: 06/29/2017 04:57 PM Electronically Signed By:Risa Benoit LCSW
--- NOTE | 2017-06-29 19:58 | GDS ---
[f rep st] DISCHARGE SUMMARY DISCHARGE DIAGNOSES: 1. Severe epigastric pain. 2. EKG changes. 3. Hyponatremia. 4. Heavy alcohol use. 5. Cannabis use. HISTORY OF PRESENT ILLNESS: Briefly, the patient is a 36-year-old male who presented with severe epi gastric pain, as well as lower chest wall pain. He said it got worse with belching. A CT scan showe d no obstruction. His appendix was normal. This evening he is able to eat and drink well. He will be discharged on Protonix twice daily, and recommended to stop all alcohol use. HOSPITAL COURSE: 1. Severe epigastric pain, resolved. Overall, he is eating and drinking well. I suspect he has alc oholic induced gastritis. 2. EKG changes. Reviewed his EKGs. No significant changes. Troponin was checked. This has been ne gative x3. 3. Hyponatremia. This is secondary to hypovolemia. The sodium level is normal today. 4. Heavy alcohol use. He said he started drinking due to stress. I have encouraged him to stop all alcohol use. He has not had any seizures when he has stopped. 5. Cannabis use. Also told him this could be causing some of his epigastric pain. He says it actua lly helps him, and he does not use it heavily. DISCHARGE CONDITION: Stable. Blood pressure is 120/80, heart rate is 89, respiratory rate is 15, O2 saturation on room air 96%, te mperature is 37.1 Celsius. DISCHARGE MEDICATIONS: Please see the EMR. DISCHARGE INSTRUCTIONS: 1. To stay on the Protonix twice a day for the next 10 days, and then take daily. 2. To follow up with his primary care provider. 3. Abstain from alcohol use. /[id number]/MODL
[2017-06-29] MEDS ORDERED: PANTOPRAZOLE SODIUM 40 MG TAB PO SCH (21:00)
[2017-07-01] MEDS ORDERED: THIAMINE HCL 100 MG TAB PO SCH (15:53)
== END 2017-06-29 18:00 | disposition home or self-care (01) | DRG 392 ==
LOC: F3E 16:22 → EEVIPCON 06-29 15:47 → OBSVTOIN 06-29 15:47
PROVIDERS: ADMIT Internal Medicine; ATTEND Internal Medicine
DX: K29.20 Alcoholic gastritis without bleeding (principal); E87.1 Hypo-osmolality and hyponatremia; F12.90 Cannabis use, unspecified, uncomplicated; B00.9 Herpesviral infection, unspecified; Z72.89 Other problems related to lifestyle
CPT/HCPCS: G0378; J1170; J1885; J2060; J2270; J3411; Q9967

== ENCOUNTER 2017-09-04 08:53 | Emergency (ER) | payer MEDICAID, OTHER ==
--- NOTE | 2017-09-04 09:22 | EDPHY ---
H & P Stated Complaint: SOB cough x weeks worse this am Time Seen by Provider: 09/04/17 09:11 HPI/ROS: CHIEF COMPLAINT: Cough dyspnea x2 weeks HISTORY OF PRESENT ILLNESS: 36-year-old immunocompetent male regular tobacco and marijuana use complaining of 2 weeks of dyspnea, productive cough. No chest pain. No abdominal pain. No fever chills. No malaise or flu-like symptoms. No rash. No nuchal rigidity. No syncope or near syncope. No headache. No abdominal pain. No gait instability. PRIMARY CARE PROVIDER: None REVIEW OF SYSTEMS: A ten point review of systems was performed and is negative with the exception of the items mentioned in the HPI PAST MEDICAL & SURGICAL HISTORY: No pertinent medical or surgical history SOCIAL HISTORY: Positive for marijuana and tobacco abuse PHYSICAL EXAM (Prior to examination, patient consented to physical exam, hands were washed and my usual and customary physical exam procedures followed) 1) GENERAL: Significant smell of marijuana upon entering the patient's room. Well-developed, well-nourished, alert and oriented. Appears to be in no acute distress. 2) HEAD: Normocephalic, atraumatic 3) HEENT: Pupils equal, round, reactive to light bilaterally. Sclera anicteric. Nasopharynx, oropharynx, clear, no lesions. No tonsillar enlargement or exudate. Ears bilaterally with normal tympanic membranes. 4) NECK: Full range of motion, no meningeal signs. 5) LUNGS: Clear auscultation bilaterally, no wheezes, no rhonchi, no retractions. 6) HEART: Regular rate and rhythm, no murmur, no heave, no gallop. 7) ABDOMEN: No guarding, no rebound, no focal tenderness, negative McBurney's, negative Miller's, negative Rovsing's, negative peritoneal sign, 8) MUSCULOSKELETAL: Moving all extremities, no focal areas of tenderness, no obvious trauma. No peripheral edema or discoloration. 9) BACK: No CVA tenderness, no midline vertebral tenderness, no fluctuance, no step-off, no obvious trauma, no visual or palpable abnormality. 10) SKIN: No rash, no petechiae. 11) Psychiatric: Patient is oriented X 3, there is no agitation. DIFFERENTIAL DIAGNOSIS: In no particular include but limited to pulmonary infectious etiology, pneumothorax, pulmonary embolus - Personal History Current Tetanus/Diphtheria Vaccine: No Current Tetanus Diphtheria and Acellular Pertussis (TDAP): No - Medical/Surgical History Hx Asthma: No Hx Chronic Respiratory Disease: No Hx Diabetes: No Hx Cardiac Disease: No Hx Renal Disease: No Hx Cirrhosis: No Hx Alcoholism: No Hx HIV/AIDS: No Hx Splenectomy or Spleen Trauma: No Other PMH: anxiety - Social History Smoking Status: Current some day smoker Constitutional: Initial Vital Signs Temperature (C) 36.5 C 09/04/17 08:59 Heart Rate 101 H 09/04/17 08:59 Respiratory Rate 18 09/04/17 08:59 Blood Pressure 155/104 H 09/04/17 08:59 O2 Sat (%) 95 09/04/17 08:59 O2 Delivery Mode Room Air Allergies/Adverse Reactions: gluten Allergy (Verified 05/05/17 21:56) Milk Containing Products [dairy] Allergy (Verified 05/05/17 21:56) topical steroids Allergy (Uncoded 05/05/17 21:56) Home Medications: Medication Instructions Recorded Pantoprazole Sodium [Protonix 40mg 40 mg PO BID #30 tab 06/29/17 (*)] Albuterol [Proventil Inhaler HFA 1 - 2 puffs IH Q4PRN PRN #1 mdi 09/04/17 (*)] Azithromycin [Zithromax] 500 mg PO DAILY #1 tablet 09/04/17 Xanax 09/04/17 Medical Decision Making - Diagnostics Imaging Results: Imaging Impressions Chest X-Ray 09/04/17 09:11 Impression: Clear lungs. No pneumonia or pneumothorax. Images reviewed myself ED Course/Re-evaluation: 9:54 a.m.: Patient back from chest x-ray. I re-evaluated the patient after DuoNeb he notes no change in symptoms. Informs me at this time that this morning , approximately 5:00 a.m., he snorted 10 lines of cocaine followed by oral Xanax. Will obtain EKG and blood work 12:28 p.m.: Re-evaluation is resting comfortably, sleeping, easily woken, heart rate in the 80s, asymptomatic. Discussed case with secondary supervising physician Dr. Michelle Vizcarra in the ER. Doubt FL, doubt PE in the presence of negative D-dimer. Discussed his more than likely infectious etiology for symptoms. Given the longevity of symptoms I think that a course of antibiotics is reasonable. Given prescription for azithromycin. Recommend avoiding drugs in the future. Feels comfortable being discharged. - Data Points Laboratory Results: Laboratory Results 09/04/17 10:30 09/04/17 10:30 09/04/17 09/04/17 09/04/17 10:30 10:30 10:30 WBC 6.69 10^3/uL 10^3/uL (3.80-9.50) RBC 4.64 10^6/uL 10^6/uL (4.40-6.38) Hgb 15.9 g/dL g/dL (13.7-17.5) Hct 43.6 % % (40.0-51.0) MCV 94.0 fL fL (81.5-99.8) MCH 34.3 pg H pg (27.9-34.1) MCHC 36.5 g/dL g/dL (32.4-36.7) RDW 12.8 % % (11.5-15.2) Plt Count 253 10^3/uL 10^3/uL (150-400) MPV 8.9 fL fL (8.7-11.7) Neut % (Auto) 73.7 % % (39.3-74.2) Lymph % (Auto) 16.3 % % (15.0-45.0) [place] % (Auto) 9.6 % % (4.5-13.0) Eos % (Auto) 0.0 % L % (0.6-7.6) Baso % (Auto) 0.3 % % (0.3-1.7) Nucleat RBC Rel Count 0.0 % % (0.0-0.2) Absolute Neuts (auto) 4.93 10^3/uL 10^3/uL (1.70-6.50) Absolute Lymphs (auto) 1.09 10^3/uL 10^3/uL (1.00-3.00) Absolute Monos (auto) 0.64 10^3/uL 10^3/uL (0.30-0.80) Absolute Eos (auto) 0.00 10^3/uL L 10^3/uL (0.03-0.40) Absolute Basos (auto) 0.02 10^3/uL 10^3/uL (0.02-0.10) Absolute Nucleated RBC 0.00 10^3/uL 10^3/uL (0-0.01) Immature Gran % 0.1 % % (0.0-1.1) Immature Gran # 0.01 10^3/uL 10^3/uL (0.00-0.10) D-Dimer < 0.27 ug/mLFEU ug/mLFEU (0.00-0.50) Sodium 137 mEq/L mEq/L (135-145) Potassium 3.6 mEq/L mEq/L (3.3-5.0) Chloride 96 mEq/L L mEq/L (97-110) Carbon Dioxide 20 mEq/l L mEq/l (22-31) Anion Gap 21 mEq/L H mEq/L (8-16) BUN 6 mg/dL L mg/dL (7-23) Creatinine 0.6 mg/dL L mg/dL (0.7-1.3) Estimated GFR > 60 Glucose 82 mg/dL mg/dL (70-100) Calcium 10.6 mg/dL H mg/dL (8.5-10.4) Troponin I < 0.012 ng/mL ng/mL (0.000-0.034) Medications Given: Discontinued Medications Albuterol/Ipratropium (Duoneb) 3 ml IH EDNOW ONE Stop: 09/04/17 09:27 Last Admin: 09/04/17 09:33 Dose: 3 ml Sodium Chloride (Ns) 500 mls @ 0 mls/hr IV EDNOW ONE; Wide Open PRN Reason: Protocol Stop: 09/04/17 10:01 Last Admin: 09/04/17 10:22 Dose: 500 mls Lorazepam (Ativan Injection) 1 mg IVP EDNOW ONE Stop: 09/04/17 10:02 Last Admin: 09/04/17 10:22 Dose: 1 mg Departure - Departure Disposition: Home, Routine, Self-Care Clinical Impression: Upper respiratory infection Qualifiers: URI type: unspecified URI Qualified Code(s): J06.9 - Acute upper respiratory infection, unspecified Condition: Good Instructions: Upper Respiratory Infection (ED) Additional Instructions: Stop using drugs Referrals: [facility],. [Clinic] - 2-3 days, call for appt. Prescriptions: Albuterol [Proventil Inhaler HFA (*)] 1 - 2 puffs IH Q4PRN PRN #1 mdi PRN Reason: Cough, Moderate Azithromycin [Zithromax] 500 mg PO DAILY #1 tablet
[2017-09-04] MEDS ORDERED: IPRATROPIUM/ALBUTEROL 3 ML DEYVIAL IH ONE (09:26)
[2017-09-04] MEDS ORDERED: NS 500 ML IV ONE (10:00)
[2017-09-04] MEDS ORDERED: LORazepam 2 MG/ML INJ IVP ONE (10:01)
[2017-09-04 10:39] LABS: PLATELET COUNT 253 10^3/uL (150-400)
--- NOTE | 2017-09-04 10:42 | CPEKG ---
Heart Rate: 86 RR Interval: 698 P-R Interval: 156 QRSD Interval: 118 QT Interval: 408 QTC Interval: 488 P [place]: 70 QRS [place]: 54 T Wave [place]: 32 EKG Severity - ABNORMAL ECG - EKG Impression: SINUS RHYTHM EKG Impression: INCOMPLETE RIGHT BUNDLE BRANCH BLOCK Electronically Signed By: Michelle Vizcarra 04-Sep-2017 15:02:38
[2017-09-04 12:05] VITALS: BP 146/95
== END 2017-09-04 12:45 | disposition home or self-care (01) ==
DX: J06.9 Acute upper respiratory infection, unspecified (principal); F17.200 Nicotine dependence, unspecified, uncomplicated; E86.9 Volume depletion, unspecified
CPT/HCPCS: 96374; J2060

== ENCOUNTER 2017-12-12 21:42 | Emergency (ER) | payer MEDICAID ==
[2017-12-12 21:53] VITALS: BP 142/97
--- NOTE | 2017-12-12 21:57 | EDPHY ---
H & P Stated Complaint: abscess on back of head and fever Time Seen by Provider: 12/12/17 21:56 HPI/ROS: HPI CHIEF COMPLAINT: Acne on back of head HISTORY OF PRESENT ILLNESS: 36-year-old male, presents emergency room out of concern for "a zit on the back of his head "States it is rather painful. He took his temperature at home was 99.7 rectally. Patient states he took his rectal temperature as he read online as this was more accurate. He became concerned due to the elevated temperature and painful area on the back of his head he thought maybe it was getting significantly infected and came to the emergency room. Here in emergency room he appears well nontoxic no acute distress afebrile. He has a very small area which appears to be a focal area of acne on the back of his head. No large abscess. No large cellulitis. Recommend warm compresses to him. I will give him a prescription for Keflex. Return precautions discussed with him Past Medical History: Denies recent medical history Past Surgical History: Denies current surgical history Social History: Denies drugs alcohol tobacco. Family History: Noncontributory ROS REVIEW OF SYSTEMS: 10 Systems were reviewed and negative with the exception of the elements mentioned in the history of present illness. Exam Constitutional triage nursing summary reviewed, vital signs reviewed, awake/ alert. Eyes normal conjunctivae and sclera, EOMI, PERRLA. HENT head: Left posterior occiput very small area of acne 1 "zit present" no abscess, no significant cellulitis, normal inspection, atraumatic, moist mucus membranes, no epistaxis, neck supple/ no meningismus, no raccoon eyes. Respiratory clear to auscultation bilaterally, normal breath sounds, no respiratory distress, no wheezing. Cardiovascular rate normal, regular rhythm, no murmur, no edema, distal pulses normal. Gastrointestinal soft, non-tender, no rebound, no guarding, normal bowel sounds, no distension, no pulsatile mass. Genitourinary no CVA tenderness. Musculoskeletal no midline vertebral tenderness, full range of motion, no calf swelling, no tenderness of extremities, no meningismus, good pulses, neurovascularly intact. Skin pink, warm, & dry, no rash, skin atraumatic. Neurologic awake, alert and oriented x 3, AAOx3, moves all 4 extremities equally, motor intact, sensory intact, CN II-XII intact, normal cerebellar, normal vision, normal speech. Psychiatric normal mood/affect. Heme/Lymph/Immune no lymphadenopathy. Differential Diagnosis: Includes but is not limited to in a particular order acne, early abscess, early cellulitis, pimple, Ingorwn hair Medical Decision Making: Plan for this patient recommend warm complexes. Keflex prescription. Return precautions discussed return if worsening symptoms questions or concerns swelling, fever, worsening pain Source: Patient - Personal History Current Tetanus/Diphtheria Vaccine: Yes Current Tetanus Diphtheria and Acellular Pertussis (TDAP): Yes - Medical/Surgical History Hx Asthma: No Hx Chronic Respiratory Disease: No Hx Diabetes: No Hx Cardiac Disease: No Hx Renal Disease: No Hx Cirrhosis: No Hx Alcoholism: No Hx HIV/AIDS: No Hx Splenectomy or Spleen Trauma: No Other PMH: anxiety - Social History Smoking Status: Current some day smoker Constitutional: Initial Vital Signs Temperature (C) 37.2 C 12/12/17 21:50 Heart Rate 73 12/12/17 21:50 Respiratory Rate 16 12/12/17 21:50 Blood Pressure 142/97 H 12/12/17 21:50 O2 Sat (%) 96 12/12/17 21:50 O2 Delivery Mode Room Air Allergies/Adverse Reactions: gluten Allergy (Verified 12/12/17 21:53) Milk Containing Products [dairy] Allergy (Verified 12/12/17 21:53) topical steroids Allergy (Uncoded 12/12/17 21:53) Home Medications: Medication Instructions Recorded Cephalexin [Keflex] 500 mg PO Q6H #28 cap 12/12/17 Departure - Departure Disposition: Home, Routine, Self-Care Clinical Impression: Acne Qualifiers: Acne type: unspecified acne Qualified Code(s): L70.9 - Acne, unspecified Condition: Good Instructions: Cellulitis (ED) Additional Instructions: 1. Recommend warm compresses. 2. Antibiotics. 3. Return if worsening symptoms questions or concerns Referrals: NONE *PRIMARY CARE P,. [Primary Care Provider] - As per Instructions Prescriptions: Cephalexin [Keflex] 500 mg PO Q6H #28 cap
== END 2017-12-12 22:09 | disposition home or self-care (01) ==
DX: L70.9 Acne, unspecified (principal); F41.9 Anxiety disorder, unspecified; F17.200 Nicotine dependence, unspecified, uncomplicated

== ENCOUNTER 2017-12-14 12:06 | Emergency (ER) | payer MEDICAID ==
--- NOTE | 2017-12-14 12:53 | EDPHY ---
H & P Stated Complaint: PT WITH BOIL ON BACK OF NECK 12/12 SEEN IN ED NOW WITH INCREASED RASH SWELLIN Time Seen by Provider: 12/14/17 12:53 HPI/ROS: CHIEF COMPLAINT: Rash HISTORY OF PRESENT ILLNESS: The patient presents to the ED after he is developed a generalized pruritic urticarial rash over the past 2 days. He was seen in the ED 2 days ago and started on Keflex for a possible mild cellulitis. The patient reports he has a history of an urticarial reaction in the past attributed to a possible fungal infection. The patient denies any complaints of shortness of breath. He complains of a rash on the back of his neck, arms and legs. He also has a small area on his scrotum which is irritated. The patient denies any known contact exposure. He denies additional acute complaints. REVIEW OF SYSTEMS: A comprehensive 10 point review of systems is otherwise negative aside from elements mentioned in the history of present illness. Source: Patient - Personal History Current Tetanus Diphtheria and Acellular Pertussis (TDAP): Yes - Medical/Surgical History Hx Asthma: No Hx Chronic Respiratory Disease: No Hx Diabetes: No Hx Cardiac Disease: No Hx Renal Disease: No Hx Cirrhosis: No Hx Alcoholism: No Hx HIV/AIDS: No Hx Splenectomy or Spleen Trauma: No Other PMH: anxiety - Social History Smoking Status: Current some day smoker - Physical Exam Exam: General Appearance: Alert, no distress Eyes: Pupils equal and round no pallor or injection ENT, Mouth: Mucous membranes moist Respiratory: There are no retractions, lungs are clear to auscultation Cardiovascular: Regular rate and rhythm Gastrointestinal: Abdomen is soft and nontender, no masses, bowel sounds normal Neurological: 5/5 strength all 4 extremities Skin: Rash consistent with contact dermatitis to the extremity, back in genitalia noted Musculoskeletal: Neck is supple nontender Extremities: symmetrical, full range of motion Psychiatric: Patient is oriented X 3, there is no agitation Constitutional: Initial Vital Signs Temperature (C) 36.6 C 12/14/17 12:10 Heart Rate 71 12/14/17 12:10 Respiratory Rate 16 12/14/17 12:10 Blood Pressure 118/89 H 12/14/17 12:10 O2 Sat (%) 98 12/14/17 12:10 O2 Delivery Mode Room Air Allergies/Adverse Reactions: gluten Allergy (Verified 12/14/17 12:09) Milk Containing Products [dairy] Allergy (Verified 12/14/17 12:09) topical steroids Allergy (Uncoded 12/12/17 21:53) Home Medications: Medication Instructions Recorded predniSONE [prednisone 20mg (RX)] 3 tab PO AD #24 tab 12/14/17 Medical Decision Making ED Course/Re-evaluation: The patient presents to the ED with a contact dermatitis. The patient will be started on a tapering dose of oral prednisone which he is used in the past for this condition. The patient has no evidence of Steen-Alden syndrome or TEN. Departure - Departure Disposition: Home, Routine, Self-Care Clinical Impression: Contact dermatitis Condition: Good Instructions: Contact Dermatitis (ED) Additional Instructions: 1. Benadryl as needed for itching. 2. Take prednisone as directed for next 12 days. 3. I recommend stopping antibiotics. 4. Return to the ED for any worsening symptoms or other concerns. Referrals: [facility],. [Clinic] - As per Instructions
[2017-12-14 13:11] VITALS: BP 118/80
== END 2017-12-14 13:11 | disposition home or self-care (01) ==
DX: L25.9 Unspecified contact dermatitis, unspecified cause (principal); F17.200 Nicotine dependence, unspecified, uncomplicated

== ENCOUNTER 2018-01-17 12:14 | Emergency (ER) | payer MEDICAID ==
--- NOTE | 2018-01-17 12:28 | EDPHY ---
H & P Time Seen by Provider: 01/17/18 12:23 HPI/ROS: CHIEF COMPLAINT: Abdominal pain vomiting and diarrhea HISTORY OF PRESENT ILLNESS: Started last night, with right lateral abdominal pain, multiple episodes of diarrhea, vomiting once this morning. No blood or coffee-ground in the emesis, no melena. Symptoms moderate to severe, not better or worse with anything. Not associated with fever or chills or recent injury. Pain does not radiate. No testicular or urinary or penile symptoms. REVIEW OF SYSTEMS: Eye: no change in vision ENT: no sore throat Cardiac: no chest pain or syncope Pulmonary: no cough or SOB Abdomen: HPI Musculoskeletal: no back pain Skin: no rash Neuro: no headache Constitutional: no fever : no urinary symptoms A comprehensive 10 point review of systems is otherwise negative aside from elements mentioned in the history of present illness. PAST MEDICAL HISTORY: Anxiety Social history: Daily alcohol General Appearance: Alert and conversant, cooperative. Eyes: No scleral icterus. ENT, Mouth: Dry mucous membranes. Respiratory: Normal respiratory effort, breath sounds equal, lungs are clear to auscultation. Cardiovascular: Regular rate and rhythm. Gastrointestinal: Abdomen is soft and non tender. Normal male without hernia, normal scrotum. No tenderness at McBurney's point even with deep palpation. Neurological: Alert, face symmetric, normal motor and sensory in extremities. Skin: Warm and dry, no rashes. Musculoskeletal: No peripheral edema. Psychiatric: Not agitated. Moderately anxious. Emergency Department course/MDM: Likely acute gastrointestinal infection, I think that acute surgical process such as perforation or appendicitis unlikely. I think hepatitis or pancreatitis or gallbladder disease unlikely. Zofran 4 mg IV, Ativan 1 mg IV, normal saline 2 L IV for vomiting and diarrhea. 1326: Feels better, no further vomiting, cramping is better, plan for hydration and discharge with symptomatic treatment. Abdomen soft and nontender to palpation at this time Smoking Status: Never smoked Constitutional: Initial Vital Signs Temperature (C) 36.9 C 01/17/18 12:18 Heart Rate 74 01/17/18 12:18 Respiratory Rate 16 01/17/18 12:18 Blood Pressure 124/74 H 01/17/18 12:18 O2 Sat (%) 97 01/17/18 12:18 O2 Delivery Mode Room Air Allergies/Adverse Reactions: gluten Allergy (Verified 01/17/18 12:18) Milk Containing Products [dairy] Allergy (Verified 01/17/18 12:18) topical steroids Allergy (Uncoded 12/12/17 21:53) Home Medications: Medication Instructions Recorded NK [No Known Home Meds] 01/17/18 Medical Decision Making Differential Diagnosis: Differential diagnosis considered for nausea and vomiting including but not limited to gastroenteritis, gastritis, appendicitis, and medication side effect. - Data Points Laboratory Results: Laboratory Results 01/17/18 12:53 01/17/18 01/17/18 12:53 12:53 WBC 5.52 10^3/uL 10^3/uL (3.80-9.50) RBC 4.98 10^6/uL 10^6/uL (4.40-6.38) Hgb 16.6 g/dL g/dL (13.7-17.5) Hct 45.3 % % (40.0-51.0) MCV 91.0 fL fL (81.5-99.8) MCH 33.3 pg pg (27.9-34.1) MCHC 36.6 g/dL g/dL (32.4-36.7) RDW 12.3 % % (11.5-15.2) Plt Count 200 10^3/uL 10^3/uL (150-400) MPV 8.7 fL fL (8.7-11.7) Neut % (Auto) 60.8 % % (39.3-74.2) Lymph % (Auto) 26.3 % % (15.0-45.0) [place] % (Auto) 11.6 % % (4.5-13.0) Eos % (Auto) 0.5 % L % (0.6-7.6) Baso % (Auto) 0.4 % % (0.3-1.7) Nucleat RBC Rel Count 0.0 % % (0.0-0.2) Absolute Neuts (auto) 3.36 10^3/uL 10^3/uL (1.70-6.50) Absolute Lymphs (auto) 1.45 10^3/uL 10^3/uL (1.00-3.00) Absolute Monos (auto) 0.64 10^3/uL 10^3/uL (0.30-0.80) Absolute Eos (auto) 0.03 10^3/uL 10^3/uL (0.03-0.40) Absolute Basos (auto) 0.02 10^3/uL 10^3/uL (0.02-0.10) Absolute Nucleated RBC 0.00 10^3/uL 10^3/uL (0-0.01) Immature Gran % 0.4 % % (0.0-1.1) Immature Gran # 0.02 10^3/uL 10^3/uL (0.00-0.10) Sodium Pending Potassium Pending Chloride Pending Carbon Dioxide Pending Anion Gap Pending BUN Pending Creatinine Pending Estimated GFR Pending Glucose Pending Calcium Pending Medications Given: Discontinued Medications Sodium Chloride (Ns) 1,000 mls @ 0 mls/hr IV EDNOW ONE; Wide Open PRN Reason: Protocol Stop: 01/17/18 12:42 Last Admin: 01/17/18 13:05 Dose: 1,000 mls Sodium Chloride (Ns) 1,000 mls @ 0 mls/hr IV EDNOW ONE; Wide Open PRN Reason: Protocol Stop: 01/17/18 12:42 Last Admin: 01/17/18 13:05 Dose: 1,000 mls Lorazepam (Ativan Injection) 1 mg IVP EDNOW ONE Stop: 01/17/18 12:42 Last Admin: 01/17/18 13:07 Dose: 1 mg Ondansetron HCl (Zofran) 4 mg IVP EDNOW ONE Stop: 01/17/18 12:42 Last Admin: 01/17/18 13:06 Dose: 4 mg Departure - Departure Disposition: Home, Routine, Self-Care Clinical Impression: Vomiting and diarrhea Abdominal pain Qualifiers: Abdominal location: right lower quadrant Qualified Code(s): R10.31 - Right lower quadrant pain Condition: Good Instructions: Acute Abdominal Pain (ED) Additional Instructions: You need to return to the emergency department immediately if you develop worsening or severe pain, fever, vomiting or you are not completely better in 8- 12 hours. Referrals: [facility],. [Clinic] - As per Instructions
[2018-01-17] MEDS ORDERED: ONDANSETRON 4 MG/2 ML VIAL IVP ONE (12:41)
[2018-01-17] MEDS ORDERED: LORazepam 2 MG/ML INJ IVP ONE (12:41)
[2018-01-17] MEDS ORDERED: NS 1,000 ML IV ONE ×2 (12:41)
[2018-01-17 13:04] LABS: PLATELET COUNT 200 10^3/uL (150-400)
[2018-01-17 14:39] VITALS: BP 140/78
== END 2018-01-17 14:38 | disposition home or self-care (01) ==
DX: R10.31 Right lower quadrant pain (principal); R11.10 Vomiting, unspecified; R19.7 Diarrhea, unspecified; E86.9 Volume depletion, unspecified
CPT/HCPCS: 96374; J2060; J2405

== ENCOUNTER 2018-10-07 04:49 | Emergency (ER) | payer MEDICAID | END 2018-10-07 06:22 | disposition home or self-care (01) ==